=== PATIENT | female | born 1995 | race African-American/Black ===

== ENCOUNTER 2020-02-17 11:04 | Emergency (ER) | payer OTHER, SELFPAY ==
--- NOTE | 2020-02-17 11:12 | ED.SKABFB ---
HPI - Skin/Abscess/Foreign Bdy General Chief complaint: Skin/Abscess/Foreign Body Stated complaint: rash Time Seen by Provider: 02/17/20 11:11 History of Present Illness HPI narrative: This is a 24-year-old that comes in for rash on her skin according to patient she says she has had a rash since Tuesday denies taking anything for symptoms states that has been itching and she would like something for it on her hands and on her face. Patient denies any new detergents new soaps or any new perfumes. Patient has not had any fever nausea vomiting and/or diarrhea Related Data Allergies Allergy/AdvReac Type Severity Reaction Status Date / Time No Known Allergies Allergy Unverified 03/20/19 03:02 Review of Systems Review of Systems: Narrative: CONSTITUTIONAL: Denies fever, chills, or sweats. EYES: Denies visual changes, redness, or discharge. ENT: Denies rhinorrhea, congestion, sore throat, or otalgia. CARDIOVASCULAR:Denies chest pain, palpitations, or edema. RESPIRATORY: Denies cough or dyspnea. GASTROINTESTINAL: Denies abdominal pain, nausea, vomiting, or diarrhea. GENITOURINARY: Denies dysuria or hematuria. SKIN: Positive rash or itching. MUSCULOSKELETAL:Denies back pain, joint pain, or myalgia. NEUROLOGIC: Denies headache, numbness, or weakness. PSYCHIATRIC:Denies anxiety or depression PMFSH Comments At time as signature, I have reviewed and agree with nursing past medical, social, surgical and family history. Please see nursing chart for further information. There is no relevant family history pertinent to the presenting complaint. Exam Narrative: Exam Narrative: GENERAL:Well-appearing, well-nourished, and in no acute distress. HEAD:Normocephalic, atraumatic. EYES: PERRLA and EOMI. ENT: Nares clear, no rhinorrhea or epistaxis. Mucous membranes moist. NECK: Supple. CHEST: Clear to auscultation. No respiratory distress. HEART: Regular rate and rhythm. No murmur heard. Normal peripheral pulses. ABDOMEN: Soft, nontender, nondistended, normal active bowel sounds. EXTREMITIES: Normal range of motion. No edema. SKIN: Warm, dry, topical rash fine erythema with rough spots. NEURO: No focal deficits. Alert and oriented x3. MDM - Skin/Abscess/Foreign Bdy Differential Diagnosis Differential diagnosis: Likely urticaria, allergic reaction to drug, cellulitis, eczema and contact dermatitis Discharge Plan Discharge Clinical Impression: Contact dermatitis Qualifiers: Contact dermatitis type: unspecified Contact dermatitis trigger: unspecified trigger Qualified Code(s): L25.9 - Unspecified contact dermatitis, unspecified cause Eczema Qualifiers: Eczema type: unspecified Qualified Code(s): L30.9 - Dermatitis, unspecified Patient Disposition: Home, Self-Care Condition: Stable Instructions: Antibiotic Form, Contact Dermatitis (ED), Eczema (ED) Additional Instructions: Use skin creams/lotion, such as those containing calamine or pramoxine to reduce itchiness Avoid scratching when possible to prevent worsening of the condition and disruption of the skin that could lead to bacterial infection To relieve itching, place a cool washcloth or some ice over the area that itches, rather than scratching Return to the office or seek ER visit if condition is not improving or worsens with fever, swelling, difficulty breathing or swallowing. Do not scratch. Pat or press on your skin for relief from itching. Your symptoms will get worse if you scratch. Keep your fingernails short so you do not tear your skin if you do scratch. Keep your skin moist. Rub lotion, cream or ointment into your skin right after a bath or shower when your skin is still damp. Ask your healthcare provider what to use and how often to use it. Take baths or showers with warm water for 10 minutes or less. Use mild bar soap. Ask your healthcare provider for the best soap for you to use. Wear cotton clothes. Wear loose-fitting clothes made from cotton or cotton blends. Avoid w
== END 2020-02-17 11:37 | disposition home or self-care (01) ==
PROVIDERS: Emergency Provider Nurse Practitioner Family
DX: L25.9 Unspecified contact dermatitis, unspecified cause (principal)
CPT/HCPCS: 99213; G0463

== ENCOUNTER 2021-04-15 13:34 | Observation (INO) | payer OTHER, SELFPAY ==
--- NOTE | 2021-04-15 13:34 | OBADM ---
This patient, Loida Carpenter, admitted to the OB room OB Post 113 for observation. Patient/family oriented to hospital policies and general routines including ID bracelet, bed and alarms, visiting hours, pain management, procedures, bathroom and other care routines, personal items, smoking policy, room service/diet, and visiting hours. Patient/Family are encouraged to report perceived risks to care and to ask questions if they do not understand what they are told or what they should do.
[2021-04-15 14:15] VITALS: BMI 39.4
[2021-04-15 14:22] LABS: Basophils Percent Auto 0.3 % (0.2-1.2); Eosinophils Absolute Auto 0.1 K/mm3 (0-0.3); Eosinophils Percent Auto 0.7 % (0-4.4); Hematocrit 38.1 % (37.0-47.0); Hemoglobin 12.2 g/dL (12.0-15.0); Immature Granulocyte Absolute 0.02 K/mm3 (0.00-0.031); Immature Granulocyte Percent A 0.3 % (0-0.5); Lymphocytes Absolute Auto 1.86 K/mm3 (0.9-3.2); Lymphocytes Percent Auto 27.3 % (18.3-44.2); Mean Corpuscular Hemoglobin 24.4 pg (26-34); Mean Corpuscular Volume 76.4 fl (80-100); Mean Platelet Volume 9.5 fl (7.4-10.4); Monocytes Absolute Auto 0.5 K/mm3 (0.1-0.6); Neutrophils Absolute Auto 4.4 K/mm3 (1.3-6.7); Neutrophils Percent Auto 64.4 % (45.5-73.1); Platelet Count Result 277 k/mm3 (150-375); Red Blood Count 4.99 M/mm3 (4.2-5.4); Red Cell Distribution Width 15.7 % (11.5-14.5); White Blood Count 6.8 K/mm3 (4.5-10.0)
[2021-04-15] MEDS: ONDANSETRON INJ 4 MG/2 ML VIAL IV PUSH (14:23)
[2021-04-15] MEDS: FAMOTIDINE 20 MG/2 ML VIAL IV PUSH (14:23)
[2021-04-15] MEDS: DEXTROSE 5%/LACTATED RINGERS 1,000 ML 999 ML IV CONT (14:24)
[2021-04-15 14:31] VITALS: BP 112/63; PULSE 70; TEMP 36.2
[2021-04-15 14:32] LABS: Albumin Level 3.9 g/dL (3.5-5.1); Alkaline Phosphatase 54 U/L (38-126); Anion Gap 8 mmol/L (8-16); Aspartate Amino Transferase 21 U/L (14-36); Bilirubin,Total 0.5 mg/dL (0.2-1.3); Blood Urea Nitrogen 3 mg/dL (7-17); Calcium 9.3 mg/dL (8.4-10.2); Carbon Dioxide 25 mmol/L (22-30); Chloride 103 mmol/L (98-107); Estimated Glomerular Filt Rate > 60; Glucose 86 mg/dL (65-105); Sodium 136 mmol/L (137-145)
[2021-04-15 15:29] LABS: Alanine Aminotransferase < 6 U/L (4-35)
[2021-04-15] MEDS: METOCLOPRAMIDE HCL INJ 10 MG/2 ML VIAL IV PUSH (15:48)
[2021-04-15] MEDS: LACTATED RINGERS 1,000 ML 200 ML IV CONT (15:48)
--- NOTE | 2021-04-18 03:24 | P.PNOB_ITS ---
OB - Triage/Final Diagnosis Visit Information Date of evaluation: 04/15/21 Reason for evaluation: other (dehydration) Comments/Additional reasons for admission: I have assessed the risk for this patient, Loida Onofre, and determined that she would benefit from observation care. Evaluation Laboratory results: Laboratory Tests 04/15/21 04/15/21 14:15 14:15 WBC 6.8 RBC 4.99 Hgb 12.2 Hct 38.1 MCV 76.4 L MCH 24.4 L MCHC 32.0 RDW 15.7 H Plt Count 277 MPV 9.5 Immature Gran % (Auto) 0.3 Neut % (Auto) 64.4 Lymph % (Auto) 27.3 [place] % (Auto) 7.0 Eos % (Auto) 0.7 Baso % (Auto) 0.3 Lymph # (Auto) 1.86 [place] # (Auto) 0.5 Eos # (Auto) 0.1 Baso # (Auto) 0.0 Abs Immat Gran (auto) 0.02 Absolute Neuts (auto) 4.4 Absolute Nucleated RBC 0.0 Nucleated RBC % 0.0 Sodium 136 L Potassium 4.0 Chloride 103 Carbon Dioxide 25 Anion Gap 8 BUN 3 L Creatinine 0.60 L Estim Creat Clear Calc Not Reportable Estimated GFR > 60 Glucose 86 Calcium 9.3 Total Bilirubin 0.5 AST 21 ALT < 6 Alkaline Phosphatase 54 Total Protein 8.0 Albumin 3.9
== END 2021-04-15 19:09 | disposition home or self-care (01) ==
PROVIDERS: Advanced Practice Midwife; Admitting Provider Obstetrics & Gynecology; Visit Provider Obstetrics & Gynecology
DX: O99.281 Endocrine, nutritional and metabolic diseases complicating pregnancy, first trimester (principal); E86.0 Dehydration; Z3A.13 13 weeks gestation of pregnancy
CPT/HCPCS: 36415; 80053; 85025; 96361; 96374; 96375; G0378; G0379; J2405; J2765; J7120; J7121

== ENCOUNTER 2021-04-20 23:59 | Emergency (ER) | payer OTHER, SELFPAY ==
[2021-04-21 00:03] VITALS: BP 117/69; PULSE 80; RESP 18; TEMP 36.3; O2SAT 100
--- NOTE | 2021-04-21 00:08 | ECG_ITS ---
Measurements Intervals [place] Rate: 74 P: 64 NM: 161 QRS: 20 QRSD: 79 T: 12 QT: 392 QTc: 436 Interpretive Statements SINUS RHYTHM INCOMPLETE RIGHT BUNDLE BRANCH BLOCK BORDERLINE T WAVE ABNORMALITY- INFERIOR LEADS BORDERLINE ECG Electronically Signed On 04-21-2021 7:10:45 CDT by Kang Rousseau D.O.
[2021-04-21 00:38] LABS: Alkaline Phosphatase 64 U/L (38-126); Anion Gap 9 mmol/L (8-16); Aspartate Amino Transferase 21 U/L (14-36); Bilirubin,Total 0.4 mg/dL (0.2-1.3); Blood Urea Nitrogen 7 mg/dL (7-17); Calcium 9.6 mg/dL (8.4-10.2); Carbon Dioxide 25 mmol/L (22-30); Chloride 104 mmol/L (98-107); Estimated CRCL calculation 112 ml/min; Estimated Glomerular Filt Rate > 60; Glucose 92 mg/dL (65-105); Potassium 3.5 mmol/L (3.4-5.0); Sodium 138 mmol/L (137-145)
[2021-04-21 00:40] LABS: Basophils Percent Auto 0.2 % (0.2-1.2); Eosinophils Absolute Auto 0.1 K/mm3 (0-0.3); Eosinophils Percent Auto 0.7 % (0-4.4); Hematocrit 38.6 % (37.0-47.0); Hemoglobin 12.2 g/dL (12.0-15.0); Immature Granulocyte Absolute 0.05 K/mm3 (0.00-0.031); Immature Granulocyte Percent A 0.6 % (0-0.5); Lymphocytes Absolute Auto 1.96 K/mm3 (0.9-3.2); Lymphocytes Percent Auto 23.5 % (18.3-44.2); Mean Corpuscular HGB Conc 31.6 g/dl (32-36); Mean Corpuscular Hemoglobin 24.1 pg (26-34); Mean Corpuscular Volume 76.1 fl (80-100); Mean Platelet Volume 9.6 fl (7.4-10.4); Monocytes Absolute Auto 0.7 K/mm3 (0.1-0.6); Neutrophils Absolute Auto 5.6 K/mm3 (1.3-6.7); Platelet Count Result 316 k/mm3 (150-375); Red Blood Count 5.07 M/mm3 (4.2-5.4); White Blood Count 8.3 K/mm3 (4.5-10.0)
[2021-04-21 01:09] LABS: Alanine Aminotransferase < 6 U/L (4-35)
--- NOTE | 2021-04-21 01:22 | ED.DIZZY ---
HPI - Dizziness General Chief Complaint: Dizziness Stated Complaint: 14 weeks , dizzy Time Seen by Provider: 04/21/21 00:47 Source: patient Mode of arrival: ambulatory Limitations: no limitations History of Present Illness HPI Narrative: 26-year-old 1 about 14 weeks of gestation here with complaints of dizziness while she was at work this afternoon. She states that she went to another ER was waiting in the ER for 6 hours decided to come here. She presently denies any chest pain or shortness of breath. No history of any vaginal bleeding or discharge or abdominal cramping. MD elicited complaint: dizziness Timing: gradual onset Severity: moderate Description: lightheadedness Exacerbating factors: nothing Relieving factors: nothing Associated symptoms: denies other symptoms Related Data Allergies Allergy/AdvReac Type Severity Reaction Status Date / Time No Known Allergies Allergy Unverified 03/20/19 03:02 Review of Systems Review of Systems: All systems reviewed & are unremarkable except as noted in HPI and below Constitutional: Constitutional: Reports no additional constitutional complaints Eyes: Eyes: Reports no additional eye complaints ENT: Reports system reviewed and no additional complaints, except as documented Cardiovascular: Cardiovascular: Reports no additional cardiovascular complaints Respiratory: Respiratory: Reports no additional respiratory complaints Gastrointestinal: Gastrointestinal: Reports no additional gastrointestinal complaints Musculoskeletal: Musculoskeletal: Reports no additional musculoskeletal complaints Neurologic: Reports system reviewed and no additional complaints, except as documented PMFSH Social History Social History Gender identity (if verbalized by the patient): Female Exam Narrative: Exam Narrative: GENERAL: Well-appearing, well-nourished, and in no acute distress. HEAD: Normocephalic, atraumatic. EYES: PERRLA and EOMI. NECK: Supple. CHEST: Clear to auscultation. No respiratory distress. HEART: Regular rate and rhythm. No murmur heard. Normal peripheral pulses. ABDOMEN: Soft, nontender, nondistended, normal active bowel sounds. EXTREMITIES: Normal range of motion. No edema. SKIN: Warm, dry, no rash. NEURO: No focal deficits. Alert and oriented x3. PSYCH: Normal mood and affect. Course Course Emergency Course: Patient comfortably lying on bed in no discomfort. I discussed lab work EKG findings. Advised her to drink plenty of fluids, follow-up with her OB doctor. Vital Signs Vital signs: Vital Signs Temperature 36.3 C L 04/21/21 00:03 Pulse Rate 80 04/21/21 00:03 Respiratory Rate 18 04/21/21 00:03 Blood Pressure 117/69 04/21/21 00:03 Pulse Oximetry 100 04/21/21 00:03 Temperature 36.3 C L 04/21/21 00:03 Pulse Rate 80 04/21/21 00:03 Respiratory Rate 18 04/21/21 00:03 Blood Pressure 117/69 04/21/21 00:03 Pulse Oximetry 100 04/21/21 00:03 MDM - Dizziness Lab Data Result diagrams: 04/21/21 00:20 04/21/21 00:20 Labs: Lab Results 04/21/21 04/21/21 Range/Units 00:20 00:20 WBC 8.3 (4.5-10.0) K/mm3 RBC 5.07 (4.2-5.4) M/mm3 Hgb 12.2 (12.0-15.0) g/dL Hct 38.6 (37.0-47.0) % MCV 76.1 L (80-100) fl MCH 24.1 L (26-34) pg MCHC 31.6 L (32-36) g/dl RDW 16.0 H (11.5-14.5) % Plt Count 316 (150-375) k/mm3 MPV 9.6 (7.4-10.4) fl Immature Gran % (Auto) 0.6 H (0-0.5) % Neut % (Auto) 67.0 (45.5-73.1) % Lymph % (Auto) 23.5 (18.3-44.2) % [place] % (Auto) 8.0 (2.6-8.5) % Eos % (Auto) 0.7 (0-4.4) % Baso % (Auto) 0.2 (0.2-1.2) % Lymph # (Auto) 1.96 (0.9-3.2) K/mm3 [place] # (Auto) 0.7 H (0.1-0.6) K/mm3 Eos # (Auto) 0.1 (0-0.3) K/mm3 Baso # (Auto) 0.0 (0.0-0.1) K/mm3 Abs Immat Gran (auto) 0.05 H (0.00-0.031) K/mm3 Absolute Neuts (auto) 5.6 (1.3-6.7) K/mm3 Absol
== END 2021-04-21 01:41 | disposition home or self-care (01) ==
LOC: ANHED 04-21 01:29
PROVIDERS: Emergency Provider Family Medicine
DX: O26.891 Other specified pregnancy related conditions, first trimester (principal); R42 Dizziness and giddiness; I45.10 Unspecified right bundle-branch block; R94.31 Abnormal electrocardiogram [ECG] [EKG]; Z3A.00 Weeks of gestation of pregnancy not specified
CPT/HCPCS: 36415; 80053; 85025; 93005; 99283

== ENCOUNTER 2021-08-06 19:05 | Outpatient (CLI) | payer OTHER, SELFPAY ==
[2021-08-06] VITALS (9 sets, daily range): BP systolic 104–125; BP diastolic 66–93; PULSE 75–85; TEMP 36.8
[2021-08-06] MEDS: ACETAMINOPHEN 500 MG TABLET 1000 MG PO (19:52)
[2021-08-06 20:07] LABS: Basophils Percent Auto 0.3 % (0.2-1.2); Eosinophils Absolute Auto 0.1 K/mm3 (0-0.3); Eosinophils Percent Auto 0.7 % (0-4.4); Hematocrit 35.5 % (37.0-47.0); Immature Granulocyte Absolute 0.08 K/mm3 (0.00-0.031); Immature Granulocyte Percent A 0.8 % (0-0.5); Lymphocytes Absolute Auto 2.04 K/mm3 (0.9-3.2); Lymphocytes Percent Auto 20.9 % (18.3-44.2); Mean Corpuscular Hemoglobin 24.9 pg (26-34); Mean Corpuscular Volume 80.3 fl (80-100); Mean Platelet Volume 9.7 fl (7.4-10.4); Monocytes Absolute Auto 0.8 K/mm3 (0.1-0.6); Monocytes Percent Auto 7.9 % (2.6-8.5); Neutrophils Absolute Auto 6.8 K/mm3 (1.3-6.7); Neutrophils Percent Auto 69.4 % (45.5-73.1); Platelet Count Result 330 k/mm3 (150-375); Red Blood Count 4.42 M/mm3 (4.2-5.4); Red Cell Distribution Width 13.5 % (11.5-14.5); White Blood Count 9.7 K/mm3 (4.5-10.0)
[2021-08-06 20:13] LABS: Add Urine Microscopic? YES; Appearance Urine Clear (Clear); Bacteria Urine Trace /hpf; Bilirubin Urine Negative (Negative); Blood Urine Negative (Negative); Color Urine Yellow (Yellow); Glucose Urine UA Negative (Negative); Ketones Urine Trace mg/dL (Negative); Leukocyte Esterase Ur Trace LEU/UL (NEGATIVE); Mucus Urine Rare /lpf; Nitrate Urine Negative (Negative); Protein Urine 1+ mg/dL (Negative); Specific Grav Ur 1.023 (1.001-1.035); Squamous Epithelial Cell Urine Rare /hpf (Few)
[2021-08-06 20:17] LABS: Alanine Aminotransferase 7 U/L (4-35); Albumin Level 4.1 g/dL (3.5-5.1); Alkaline Phosphatase 104 U/L (38-126); Anion Gap 7 mmol/L (8-16); Aspartate Amino Transferase 25 U/L (14-36); Bilirubin,Total 0.8 mg/dL (0.2-1.3); Blood Urea Nitrogen 7 mg/dL (7-17); Calcium 9.2 mg/dL (8.4-10.2); Carbon Dioxide 29 mmol/L (22-30); Chloride 102 mmol/L (98-107); Estimated Glomerular Filt Rate > 60; Glucose 72 mg/dL (65-110); Sodium 138 mmol/L (137-145); Uric Acid 3.1 mg/dL (2.5-7.5)
[2021-08-06 21:09] LABS: Creatinine Urine 158.8 mg/dL; Total Protein Urine Random 6 mg/dL; Ur Ttl Prot Creatinine Ratio 0.04 mg/mg (0-0.20)
== END 2021-08-06 23:10 | disposition home or self-care (01) ==
LOC: ANHOBOP 19:11 → ANHOBPP 19:12
PROVIDERS: Advanced Practice Midwife; Visit Provider Obstetrics & Gynecology
DX: H53.8 Other visual disturbances (principal); R11.0 Nausea
CPT/HCPCS: 36415; 59025; 80053; 81001; 82570; 84156; 84550; 85025; 87086; 99199; A9270

== ENCOUNTER 2021-08-10 13:16 | Observation (INO) | payer OTHER, SELFPAY ==
[2021-08-10 13:46] VITALS: BP 116/71; PULSE 79
--- NOTE | 2021-08-10 13:50 | OBADM ---
This patient, Loida Onofre, admitted to the OB room OB Post 112 for observation. Patient/family oriented to hospital policies and general routines including ID bracelet, bed and alarms, visiting hours, pain management, procedures, bathroom and other care routines, personal items, smoking policy, room service/diet, and visiting hours. Patient/Family are encouraged to report perceived risks to care and to ask questions if they do not understand what they are told or what they should do.
[2021-08-10 14:01] VITALS: BP 119/71; PULSE 84
[2021-08-10 14:16] VITALS: BP 111/72; PULSE 76
[2021-08-10 14:18] LABS: Add Urine Microscopic? YES; Amorphous Sediment Urine Few; Appearance Urine Cloudy (Clear); Bacteria Urine Trace /hpf; Bilirubin Urine Negative (Negative); Blood Urine Negative (Negative); Color Urine Amber (Yellow); Glucose Urine UA Negative (Negative); Ketones Urine Trace mg/dL (Negative); Leukocyte Esterase Ur 3+ LEU/UL (NEGATIVE); Mucus Urine Heavy /lpf; Nitrate Urine Negative (Negative); Protein Urine 2+ mg/dL (Negative); Specific Grav Ur 1.024 (1.001-1.035); Squamous Epithelial Cell Urine Moderate /hpf (Few)
[2021-08-10 14:31] VITALS: BP 117/66; PULSE 83
--- NOTE | 2021-08-10 14:45 | PC.NURSE ---
Óscar Napoles notified of adm c/o nausea and vomiting and not being able to keep anything down sense . Orders received.
[2021-08-10] MEDS: DEXTROSE 5%/LACTATED RINGERS 1,000 ML 150 ML IV CONT ×3 (14:58→22:51)
[2021-08-10] MEDS: ONDANSETRON INJ 4 MG/2 ML VIAL IV PUSH (14:59)
--- NOTE | 2021-08-10 16:00 | PC.NURSE ---
Patient states that she had some vomiting a bit ago after eating crackers. Better now.
--- NOTE | 2021-08-10 18:04 | PC.NURSE ---
Addendum entered by Carolina Lorenzana RN 08/10/21 18:05: 1730 Original Note: Patient states that she is feeling a little better but not wanting to eat anything right now.
[2021-08-10 20:04] VITALS: BP 127/71; PULSE 73
[2021-08-10] MEDS: PROMETHAZINE HCL 25 MG/ML AMPUL 12.5 MG IV PUSH (22:50)
[2021-08-10] MEDS: diphenhydrAMINE HCl INJ 50 MG/ML VIAL 25 MG IV PUSH (23:08)
[2021-08-10 23:32] VITALS: BP 127/71; PULSE 78
--- NOTE | 2021-08-10 23:37 | PCDIET ---
2244 called Óscar altman CNM notified pt still vomiting. order received for phenegran 12.5 ivp. 0 Phenegran IVP given. 2299 pt started to agitated and moving around a lot. appears uncomfortable. called Candi got benadryl order.
[2021-08-11 07:17] VITALS: BP 120/74; PULSE 76; TEMP 36.4
[2021-08-11] MEDS: DEXTROSE 5%/LACTATED RINGERS 1,000 ML 150 ML IV CONT (07:21)
--- NOTE | 2021-08-11 08:05 | WPDOBADMIT ---
Obstetrics - Admit Note Admission Note: 26 y/o here for nausea and vomiting with headache. Today improved. No headache and very minimal nausea. Plan: [facility] panel record reviewed. No pertinent additions to the history and/or any subsequent changes in the physical findings that are not consistent with the expected course of the were found. Additions to the history and/or subsequent changes in the physical findings follow. None.
--- NOTE | 2021-08-11 08:19 | PC.NURSE ---
0800- Lisette REYNAGAM on unit to round on patient, orders for [facility] labs, order for PO phenergan 12.5 mg if pt is nauseous again
[2021-08-11 08:20] LABS: Basophils Percent Auto 0.1 % (0.2-1.2); Eosinophils Absolute Auto 0.1 K/mm3 (0-0.3); Eosinophils Percent Auto 0.8 % (0-4.4); Hematocrit 30.7 % (37.0-47.0); Hemoglobin 9.6 g/dL (12.0-15.0); Immature Granulocyte Absolute 0.06 K/mm3 (0.00-0.031); Immature Granulocyte Percent A 0.8 % (0-0.5); Lymphocytes Absolute Auto 2.02 K/mm3 (0.9-3.2); Lymphocytes Percent Auto 26.5 % (18.3-44.2); Mean Corpuscular HGB Conc 31.3 g/dl (32-36); Mean Corpuscular Hemoglobin 24.9 pg (26-34); Mean Corpuscular Volume 79.7 fl (80-100); Mean Platelet Volume 9.3 fl (7.4-10.4); Monocytes Absolute Auto 0.7 K/mm3 (0.1-0.6); Monocytes Percent Auto 9.2 % (2.6-8.5); Neutrophils Absolute Auto 4.8 K/mm3 (1.3-6.7); Neutrophils Percent Auto 62.6 % (45.5-73.1); Platelet Count Result 264 k/mm3 (150-375); Red Blood Count 3.85 M/mm3 (4.2-5.4); Red Cell Distribution Width 13.6 % (11.5-14.5); White Blood Count 7.6 K/mm3 (4.5-10.0)
[2021-08-11 08:36] LABS: Alanine Aminotransferase 9 U/L (4-35); Albumin Level 3.1 g/dL (3.5-5.1); Alkaline Phosphatase 74 U/L (38-126); Anion Gap 7 mmol/L (8-16); Aspartate Amino Transferase 19 U/L (14-36); Bilirubin,Total 0.4 mg/dL (0.2-1.3); Blood Urea Nitrogen 5 mg/dL (7-17); Calcium 8.2 mg/dL (8.4-10.2); Carbon Dioxide 24 mmol/L (22-30); Chloride 106 mmol/L (98-107); Estimated Glomerular Filt Rate > 60; Glucose 80 mg/dL (65-110); Potassium 3.6 mmol/L (3.4-5.0); Sodium 137 mmol/L (137-145); Uric Acid 2.6 mg/dL (2.5-7.5)
[2021-08-11] MEDS: PROCHLORPERAZINE 25 MG SUPP.RECT RECTAL (08:55)
[2021-08-11 10:01] LABS: Creatinine Urine 65.7 mg/dL; Total Protein Urine Random 16 mg/dL; Ur Ttl Prot Creatinine Ratio 0.24 mg/mg (0-0.20)
--- NOTE | 2021-08-11 11:27 | PC.NURSE ---
1051- spoke with Tennille Napoles CNM, orders to discharge to home, prescription sent for compazine suppositories
--- NOTE | 2021-08-23 10:01 | PM.OBTRLD ---
OB - Triage/Final Diagnosis Visit Information Comments/Additional reasons for admission: I have assessed the risk for this patient, Loida Villegas Shanell Onofre, and determined that she would benefit from observation care. Evaluation Laboratory results: Laboratory Tests 08/10/21 08/11/21 08/11/21 13:46 08:07 08:07 WBC 7.6 RBC 3.85 L Hgb 9.6 L Hct 30.7 L MCV 79.7 L MCH 24.9 L MCHC 31.3 L RDW 13.6 Plt Count 264 MPV 9.3 Immature Gran % (Auto) 0.8 H Neut % (Auto) 62.6 Lymph % (Auto) 26.5 [place] % (Auto) 9.2 H Eos % (Auto) 0.8 Baso % (Auto) 0.1 L Lymph # (Auto) 2.02 [place] # (Auto) 0.7 H Eos # (Auto) 0.1 Baso # (Auto) 0.0 Abs Immat Gran (auto) 0.06 H Absolute Neuts (auto) 4.8 Absolute Nucleated RBC 0.0 Nucleated RBC % 0.0 Sodium Potassium Chloride Carbon Dioxide Anion Gap BUN Creatinine Estim Creat Clear Calc Estimated GFR Glucose Uric Acid Calcium Total Bilirubin AST ALT Alkaline Phosphatase Total Protein Albumin Urine Color [place] Urine Appearance Cloudy H Urine pH 5.0 Ur Specific [place] 1.024 Urine Protein 2+ H Urine Glucose (UA) Negative Urine Ketones Trace Ur Blood (Man) Negative Urine Nitrate Negative Urine Bilirubin Negative Urine Urobilinogen 4.0 H Ur Leukocyte Esterase 3+ H Urine RBC 6-10 H Urine WBC 10-15 H Ur Squamous Epith Cells Moderate H Amorphous Sediment Few H Urine Bacteria Trace Hyaline Casts 1-2 Urine Mucus Heavy H U Random Total Protein 16 Urine Creatinine 65.7 Protein/Creat Ratio 2 0.24 H 08/11/21 08:07 WBC RBC Hgb Hct MCV MCH MCHC RDW Plt Count MPV Immature Gran % (Auto) Neut % (Auto) Lymph % (Auto) [place] % (Auto) Eos % (Auto) Baso % (Auto) Lymph # (Auto) [place] # (Auto) Eos # (Auto) Baso # (Auto) Abs Immat Gran (auto) Absolute Neuts (auto) Absolute Nucleated RBC Nucleated RBC % Sodium 137 Potassium 3.6 Chloride 106 Carbon Dioxide 24 Anion Gap 7 L BUN 5 L Creatinine 0.50 L Estim Creat Clear Calc Not Reportable Estimated GFR > 60 Glucose 80 Uric Acid 2.6 Calcium 8.2 L Total Bilirubin 0.4 AST 19 ALT 9 Alkaline Phosphatase 74 Total Protein 6.0 L Albumin 3.1 L Urine Color Urine Appearance Urine pH Ur Specific [place] Urine Protein Urine Glucose (UA) Urine Ketones Ur Blood (Man) Urine Nitrate Urine Bilirubin Urine Urobilinogen Ur Leukocyte Esterase Urine RBC Urine WBC Ur Squamous Epith Cells Amorphous Sediment Urine Bacteria Hyaline Casts Urine Mucus U Random Total Protein Urine Creatinine Protein/Creat Ratio 2 Final Diagnosis (1) Nausea and vomiting during : Code(s): O21.9 - Vomiting of , unspecified Status: Acute
== END 2021-08-11 11:20 | disposition home or self-care (01) ==
PROVIDERS: Advanced Practice Midwife; Admitting Provider Obstetrics & Gynecology; Visit Provider Obstetrics & Gynecology
DX: O21.2 Late vomiting of pregnancy (principal); Z3A.39 39 weeks gestation of pregnancy
CPT/HCPCS: 36415; 59025; 80053; 81001; 82570; 84156; 84550; 85025; 96360; 96361; 96374; 96375; A9270; G0378; G0379; J1200; J2405; J2550; J7121

== ENCOUNTER 2021-09-07 13:46 | Emergency (ER) | payer OTHER, SELFPAY ==
[2021-09-07 13:57] VITALS: BP 117/68; PULSE 91; RESP 16; TEMP 36.8; O2SAT 99
--- NOTE | 2021-09-07 14:17 | ED.EYEPROB ---
HPI - Eye Problem General Chief complaint: Eye Problems Stated complaint: Eye Pain Time Seen by Provider: 09/07/21 14:18 Source: patient, RN notes reviewed and old records reviewed Mode of arrival: ambulatory Limitations: no limitations History of Present Illness HPI Narrative: 26-year-old female presents to [facility] care with 3 day duration of bilateral eye itching, redness and drainage with crusting. 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 Patient denies any fevers, chills or sweats or any other symptoms of illness. MD chief complaint: eye redness and other (drainage) Onset (ago): day(s) (3) Related Data Home Medications Medication Instructions Recorded Confirmed sertraline 100 mg PO DAILY 09/07/21 09/07/21 Allergies Allergy/AdvReac Type Severity Reaction Status Date / Time No Known Allergies Allergy Verified 09/07/21 14:18 Review of Systems Review of Systems: CONSTITUTIONAL: Denies fever, chills, or sweats. EYES: Denies visual changes,positive for bilateral eye redness and discharge. ENT:Positive for some clear rhinorrhea,no congestion, sore throat, or otalgia. CARDIOVASCULAR: Denies chest pain, palpitations, or edema. RESPIRATORY: Denies cough or dyspnea. GASTROINTESTINAL: Denies abdominal pain, nausea, vomiting, or diarrhea. GENITOURINARY: Denies dysuria or hematuria. SKIN: Denies rash or itching. MUSCULOSKELETAL: Denies back pain, joint pain, or myalgia. NEUROLOGIC: Denies headache, numbness, or weakness. PSYCHIATRIC: Positive for history of anxiety or depression. All systems reviewed & are unremarkable except as noted in HPI and below PMFSH Past Medical History Medical History (Updated 09/09/21 @ 17:17 by Dominique Pat NP) Anxiety and depression Surgical History Surgical History (Updated 09/09/21 @ 17:18 by Dominique Pat NP) No history of previous surgery Family History Family History (Updated 09/09/21 @ 17:18 by Dominique Pat NP) Other No significant family history Social History Social History (Updated 09/09/21 @ 17:19 by Dominique Pat NP) Smoking status: Never smoker Alcohol intake: former Alcohol use details: social only presently is 34 weeks Substance use: never Living arrangements: with family Gender identity (if verbalized by the patient): Female Comments At time of signature, agree with nursing past medical, surgical, social and family history. There is no relevant family history pertinent to the presenting complaint Exam Narrative: GENERAL: Well-appearing, well-nourished, and in no acute distress. HEAD: Normocephalic, atraumatic. EYES: PERRLA and EOMI. Patient has bilateral sclera redness with conjunctiva red and inflamed, itchy eyes with some yellowish drainage noted from eyes ENT: Nares clear, scant clear rhinorrhea no epistaxis. Mucous membranes moist.TM's normal with good light reflex,throat pink with no lesions or exudates, no tonsil enlargement. NECK: Supple.no lymphadenopathy CHEST: Clear to auscultation. No respiratory distress. SAO2 99% HEART: Regular rate and rhythm. No murmur heard. Normal peripheral pulses. ABDOMEN: Soft, nontender, nondistended, normal active bowel sounds. EXTREMITIES: Normal range of motion. No edema. SKIN: Warm, dry, no rash. NEURO: No focal deficits. Alert and oriented x3. Course Vital Signs Vital signs: Vital Signs Temperature 36.8 C 09/07/21 13:57 Pulse Rate 91 09/07/21 13:57 Respiratory Rate 16 09/07/21 13:57 Blood Pressure 117/68 09/07/21 13:57 Pulse Oximetry 99 09/07/21 13:57 Temperature 36.8 C 09/07/21 13:57 Pulse Rate 91 09/07/21 13:57 Respiratory Rate 16 09/07/21 13:57 Blood Pressure 117/68 09/07/21 13:57 Pulse Oximetry 99 09/07/21 13:57 MDM - Eye Problem Diff
== END 2021-09-07 14:40 | disposition home or self-care (01) ==
PROVIDERS: Emergency Provider Registered Nurse
DX: O99.891 Other specified diseases and conditions complicating pregnancy (principal); Z3A.34 34 weeks gestation of pregnancy; H10.33 Unspecified acute conjunctivitis, bilateral
CPT/HCPCS: 99213; G0463

== ENCOUNTER 2021-10-18 04:50 | Inpatient (IN) | payer OTHER, SELFPAY ==
[2021-10-18] VITALS (45 sets, daily range): BP systolic 99–147; BP diastolic 63–105; PULSE 75–105; RESP 16; TEMP 36.2–36.9; O2SAT 100; BMI 39.9
--- OUTSIDE RECORDS SUMMARY | 2021-10-18 05:15 | XMS_ITS | Encounter Summary ---
:1995 Author Reason for Visit None recorded. Assessment and Plan 1. Maternal obesity complicating , childbirth and the puerperium, antepartum ? non-stress test Discussion Note: None recorded.Patient educational handouts: No information available. Plan of Care Reminders Provider Appointments Ob Routine 10/20/2021 Ariadne Mary Alice 9:45AM MD Diana ? U/S OB BPP 10/20/2021 Ultras ound, TECH 9:00AM ? Nst 10/20/2021 Nst, , EQUI P 8:30AM ? Well on or around Quin morrison, Woman-est 11/27/2021 CNM Lab None ? ? recorded. Referral None ? ? recorded. Procedures None ? ? recorded. Surgeries None ? ? recorded. Imaging Non-stress 09/22/2021 Liliana jamison Test Medications Name Start Date ? ? fluconazole 150 mg tablet ? TAKE 1 TABLET BY MOUTH EVERY 72 HOURS FOR 7 DAYS ondansetron HCl 4 mg tablet ? Take 1 tablet every 6-8 hours by oral route as needed . ? prochlorperazine 25 mg rectal suppository ? UNWRAP AND INSERT 1 SUPPOSITORY RECTALLY DAILY sertraline 100 mg tablet ? TAKE 1 TABLET BY MOUTH EVERY DAY Notes: Samples given to pt Mei rizo
--- OUTSIDE RECORDS SUMMARY | 2021-10-18 05:15 | XMS_ITS | Encounter Summary ---
[...] Surgeries None ? ? recorded. Imaging Non-stress 10/06/2021 Liliana jamison Test Medications Name Start Date [...]
--- OUTSIDE RECORDS SUMMARY | 2021-10-18 05:15 | XMS_ITS | Encounter Summary ---
:1995 Author Reason for Visit OB visit Assessment and Plan 1. Group B Streptococcus carrier 2. Routine care Discussion Note: None recorded.Patient educational handouts: No information available. Plan of Care Reminders Provider Appointments Ob Routine 10/20/2021 Ariadne Mary Alice 9:45AM MD Diana ? U/S OB BPP 10/20/2021 Ultras ound, TECH 9:00AM ? Nst 10/20/2021 Nst, BEREKET P 8:30AM ? Well on or around Quin morrison, Woman-est 11/27/2021 CNM Lab None ? ? recorded. Referral None ? ? recorded. Procedures None ? ? recorded. Surgeries None ? ? recorded. Imaging None ? ? recorded. Medications Name Start Date ? ? fluconazole [...] Notes: Samples given to pt Mei rizo Medications Administered None recorded. Vitals Height Weight BM
--- OUTSIDE RECORDS SUMMARY | 2021-10-18 05:15 | XMS_ITS | Encounter Summary ---
:1995 Author Reason for Visit None recorded. Assessment and Plan 1. Maternal obesity complicating , childbirth and the puerperium, antepartum ? US, obstetric, biophysical profile + non-stress test Discussion Note: None recorded.Patient educational handouts: No information available. Plan of Care Reminders Provider Appointments Ob Routine 10/20/2021 Ariadne Mary Alice 9:45AM MD Diana ? U/S OB BPP 10/20/2021 Ultras ound, 9:00AM TECH ? Nst 10/20/2021 Nst, , EQUI P 8:30AM ? Well on or around Quin E Woman-est 11/27/2021 [place] Mon Lab None ? ? recorded. Referral None ? ? recorded. Procedures None ? ? recorded. Surgeries None ? ? recorded. Imaging US, 10/06/2021 [facility], Biophysical Profile + Non-stress Test Medications Name Start Date ? ? fluconazole 150 mg tablet ? TAKE 1 TABLET BY MOUTH EVERY 72 HOURS FOR 7 DAYS ondansetron HCl 4 mg tablet ? Take 1 tablet every 6-8 hours by oral route as needed . ? prochlorperazine 25 mg rectal suppository ? UNWRAP AND INSERT 1 SUPPOSITORY RECTALLY D
--- OUTSIDE RECORDS SUMMARY | 2021-10-18 05:15 | XMS_ITS | Encounter Summary ---
:1995 Author Reason for Visit None recorded. Assessment and Plan 1. Maternal obesity complicating , childbirth and the puerperium, antepartum ? non-stress test Discussion Note: None recorded.Patient educational handouts: No information available. Plan of Care Reminders Provider Appointments Ob Routine 10/20/2021 Ariadne Mary Alice 9:45AM MD Diaan ? U/S OB BPP 10/20/2021 Ultras ound, TECH 9:00AM ? Nst 10/20/2021 Nst, , EQUI P 8:30AM ? Well on or around Quin morrison, Woman-est 11/27/2021 CNM Lab None ? ? recorded. Referral None ? ? recorded. Procedures None ? ? recorded. Surgeries None ? ? recorded. Imaging Non-stress 09/29/2021 Liliana jamison Test Medications Name Start Date [...]
--- OUTSIDE RECORDS SUMMARY | 2021-10-18 05:15 | XMS_ITS | Encounter Summary ---
:1995 Author Reason for Visit OB visit Assessment and Plan 1. Routine care Discussion Note: None recorded.Patient educational handouts: No information available. Plan of Care Reminders Provider Appointments Ob Routine 10/20/2021 Ariadne Mary Alice 9:45AM MD Diana ? U/S OB BPP 10/20/2021 Ultras ound, TECH 9:00AM ? Nst 10/20/2021 Nst, RICHI P 8:30AM ? Well on or around [...] Medications Administered None recorded. Vitals Height Weight BMI Blood Pressure 5 ft 5 in 214 lbs 35.
--- OUTSIDE RECORDS SUMMARY | 2021-10-18 05:15 | XMS_ITS | Encounter Summary ---
[...] Surgeries None ? ? recorded. Imaging US, 10/13/2021 [place] [facility], Biophysical Profile + Non-stress Test Medications [...]
--- OUTSIDE RECORDS SUMMARY | 2021-10-18 05:15 | XMS_ITS | Encounter Summary ---
:1995 Author Reason for Visit None recorded. Assessment and Plan 1. Maternal obesity complicating , childbirth and the puerperium, antepartum ? US, obstetric, follow-up ? US, obstetric, biophysical profile + non-stress [...] Surgeries None ? ? recorded. Imaging US, 09/29/2021 [place] [facility], Follow-up ? US, 09/29/2021 [place] [facility], Biophysical Profile + Non-stress Test Medications Name Start Date ? ? fluconazole 150 mg tablet ? TAKE 1 TABLET BY MOUTH EVERY 72 HOURS FOR 7 DAYS ondansetron HCl 4
--- OUTSIDE RECORDS SUMMARY | 2021-10-18 05:15 | XMS_ITS ---
:1995 Author Care Team Providers Name Role Phone Halie Napoles Primary Care Provider Unavailable Allergies Code Code System Name Reaction Severity Status Onset NKDA ? Medications Name Status Start Date Stop Date ? ? ciprofloxacin 0.3 % eye drops Completed ? fluconazole 150 mg tablet Active ? Not av ailable TAKE 1 TABLET BY MOUTH EVERY 72 HOURS FOR 7 DAYS Lomedia 24 Fe 1 mg-20 mcg (24)/75 mg (4) tablet Completed 04/11/2018 02/15/2020 TAKE 1 TABLET BY ORAL ROUTE EVERY DAY metronidazole 500 mg tablet Completed ? 06/15 TAKE 4 TABLETS BY MOUTH ALL AT ONCE ondansetron HCl 4 mg tablet Active ? Not available Active ? Not available prochlorperazine 25 mg rectal suppository Active ? Not available UNWRAP AND INSERT 1 SUPPOSITORY RECTALLY DAILY metoclopramide 10 mg tablet Active ? Not available TAKE 1 TABLET BY MOUTH FOUR TIMES DAILY sertraline 100 mg tablet Active ? Not isabella ilable sertraline 50 mg tablet Completed ? 09/02/20 21 Zithromax 500 mg tablet Completed 03/13/2018 04/14/20 18 take 2 tablet by oral route once Notes: Samples given to pt Mei rizo Problems Name Status Onset Date Source ? Body Mass Index 30+ - Obesity Unknown 05/28/2016 Hi story Test Negative Unknown 05/28/2016 History Combined Oral Contraceptive - Use Unknown 02/02/2017 History Human Papillomavirus Deoxyribonucleic Unknown 03/16/2017 History Acid Test Positi
--- OUTSIDE RECORDS SUMMARY | 2021-10-18 05:15 | XMS_ITS | Encounter Summary ---
:1995 Author Reason for Visit OB visit Assessment and Plan 1. Routine care 2. Candidal vulvovaginitis ? Diflucan 150 mg tablet 3. Venereal disease screening Discussion Note: None recorded.Patient educational handouts: No information available. Plan of Care Reminders Provider Appointments Ob Routine 10/20/2021 Ariadne Mary Alice 9:45AM MD Diana ? U/S OB BPP 10/20/2021 Ultras regla TECH 9:00AM ? Nst 10/20/2021 Nst, RICHI [...]
--- OUTSIDE RECORDS SUMMARY | 2021-10-18 05:15 | XMS_ITS | Encounter Summary ---
:1995 Author Reason for Visit OB visit 36W4D Assessment and Plan 1. Routine care Discussion Note: None recorded.Patient educational handouts: No information available. Plan of Care Reminders Provider Appointments Ob Routine 10/20/2021 Aridane Mary Alice 9:45AM MD Diana ? U/S OB BPP 10/20/2021 Ultras ound, TECH 9:00AM ? Nst 10/20/2021 NstEQUI P 8:30AM ? Well on or around [...]
--- OUTSIDE RECORDS SUMMARY | 2021-10-18 05:15 | XMS_ITS | Encounter Summary ---
[...] Surgeries None ? ? recorded. Imaging Non-stress 10/13/2021 Liliana jamison Test Medications Name Start Date [...]
--- OUTSIDE RECORDS SUMMARY | 2021-10-18 05:15 | XMS_ITS | Encounter Summary ---
:1995 Author Reason for Visit OB visit 37w4d Assessment and Plan 1. Routine care Discussion [...]
--- OUTSIDE RECORDS SUMMARY | 2021-10-18 05:16 | XMS_ITS | Encounter Summary ---
:1995 Author Reason for Visit OB visit 31w3d Assessment and Plan 1. Routine care Discussion [...]
--- OUTSIDE RECORDS SUMMARY | 2021-10-18 05:16 | XMS_ITS | Encounter Summary ---
:1995 Author Reason for Visit OB visit OB [id number] EDC 10/16/2021 LMP 01/09/2021 Assessment and Plan Assessment Note Patient is _33__weeks . Dis cussed plan. 1. Routine care Discussion Note: None recorded.Patient educational handouts: No information available. Plan of Care Reminders Provider Appointments Ob Routine 10/20/2021 Ariadne Mary Alice 9:45AM MD Diana ? U/S OB BPP 10/20/2021 Ultras regla TECH 9:00AM ? Nst 10/20/2021 Nst, , EQUI P 8:30AM ? Well on or around Quin Felipe morrison, Woman-est 11/27/2021 CNM Lab None ? [...]
--- OUTSIDE RECORDS SUMMARY | 2021-10-18 05:16 | XMS_ITS | Encounter Summary ---
:1995 Author Reason for Visit None recorded. Assessment and Plan 1. Uterine fibroids affecting pr egnancy ? US, obstetric, follow-up Discussion Note: None recorded.Patient educational handouts: No [...] Surgeries None ? ? recorded. Imaging US, 08/03/2021 [place] [facility], Follow-up Medications Name Start Date ? ? fluconazole [...] Samples given to pt Mei rizo Medications Adm
--- OUTSIDE RECORDS SUMMARY | 2021-10-18 05:16 | XMS_ITS | Encounter Summary ---
:1995 Author Reason for Visit OB visit Assessment and Plan 1. Uterine fibroids affecting pr egnancy 2. Mixed anxiety and depressive disorder ? Zoloft 100 mg tablet Discussion Note: None recorded.Patient educational handouts: No information available. Plan of Care Reminders Provider Appointments Ob Routine 10/20/2021 Ariadne Mary Alice 9:45AM MD Diana ? U/S OB BPP 10/20/2021 Ultras regal, TECH 9:00AM ? Nst 10/20/2021 Nst, RICHI [...] DAY Notes: Samples given to pt Mei Ogden
--- OUTSIDE RECORDS SUMMARY | 2021-10-18 05:16 | XMS_ITS | Encounter Summary ---
[...] Surgeries None ? ? recorded. Imaging US, 09/02/2021 [place] [facility], Follow-up Medications Name Start Date ? [...] Samples given to pt Mei rizo Medications Admi
[2021-10-18] MEDS: AMPICILLIN 2 GM/NS 100 ML 2 GM/100 ML BAG IVPB (05:40)
[2021-10-18] MEDS: LACTATED RINGERS 1,000 ML 125 ML IV CONT (05:40)
[2021-10-18 05:54] LABS: Basophils Percent Auto 0.2 % (0.2-1.2); Eosinophils Absolute Auto 0.1 K/mm3 (0-0.3); Eosinophils Percent Auto 0.5 % (0-4.4); Hematocrit 33.7 % (37.0-47.0); Hemoglobin 10.9 g/dL (12.0-15.0); Immature Granulocyte Absolute 0.13 K/mm3 (0.00-0.031); Immature Granulocyte Percent A 1.2 % (0-0.5); Lymphocytes Absolute Auto 2.16 K/mm3 (0.9-3.2); Lymphocytes Percent Auto 20.1 % (18.3-44.2); Mean Corpuscular HGB Conc 32.3 g/dl (32-36); Mean Corpuscular Hemoglobin 23.4 pg (26-34); Mean Corpuscular Volume 72.5 fl (80-100); Monocytes Absolute Auto 0.9 K/mm3 (0.1-0.6); Monocytes Percent Auto 8.7 % (2.6-8.5); Neutrophils Absolute Auto 7.4 K/mm3 (1.3-6.7); Neutrophils Percent Auto 69.3 % (45.5-73.1); Platelet Count Result 359 k/mm3 (150-375); Red Blood Count 4.65 M/mm3 (4.2-5.4); Red Cell Distribution Width 14.9 % (11.5-14.5); White Blood Count 10.7 K/mm3 (4.5-10.0)
--- NOTE | 2021-10-18 06:07 | LDADM ---
This patient, Loida Onofre, was admitted to Labor/Delivery/Recovery 105 on 10/18/21 at 04:50. Plans for labor, pain management and were discussed with patient. Patient/family oriented to hospital policies and general routines including ID bracelet, bed and alarms, visiting hours, pain management, procedures, bathroom and other care routines, personal items, smoking policy, room service/diet and guest tray routines, infant security routines, and visiting hours. Patient/Family are encouraged to report perceived risks to care and to ask questions if they do not understand what they are told or what they should do. See OBIX for further documentation.
[2021-10-18] MEDS: OXYTOCIN 30 UNITS/NS 500 ML 30 UNITS/500 ML BAG IV CONT (06:15)
--- NOTE | 2021-10-18 06:33 | WPDANESEPPF ---
Anes - Initial Pre Proc Eval Procedure: labor epidural Date/Time: 10/18/21 06:33 Surgeon: Ariadne Ortiz MD Pre Op Diagnosis: labor pain Pre Op Diagnosis: Rupture of Membranes Patient Data Age: 26 Gender: F Height: 1.57 m Weight: 99 kg Last Vital Signs Temp 36.9 C 10/18/21 05:52 Pulse 84 10/18/21 06:31 BP 108/85 10/18/21 06:31 Allergies Allergy/AdvReac Type Severity Reaction Status Date / Time promethazine [From Phenergan] Allergy Itching Verified 09/30/21 14:32 Home Medications Medication Instructions Recorded Confirmed Type prochlorperazine [Compazine] 25 mg RECTAL DAILY #10 ea 08/11/21 09/07/21 Rx ciprofloxacin HCl See Rx Instructions .ROUTE 09/07/21 Rx .COMPLEX #10 ml sertraline 100 mg PO DAILY 09/07/21 09/07/21 History vit-ferrous sulfat-FA 1 tablet PO DAILY 10/18/21 10/18/21 History [] Laboratory Tests 10/18/21 10/18/21 05:46 05:46 WBC 10.7 K/mm3 H K/mm3 (4.5-10.0) RBC 4.65 M/mm3 M/mm3 (4.2-5.4) Hgb 10.9 g/dL L g/dL (12.0-15.0) Hct 33.7 % L % (37.0-47.0) MCV 72.5 fl L fl (80-100) MCH 23.4 pg L pg (26-34) MCHC 32.3 g/dl g/dl (32-36) RDW 14.9 % H % (11.5-14.5) Plt Count 359 k/mm3 k/mm3 (150-375) MPV 10.0 fl fl (7.4-10.4) Immature Gran % (Auto) 1.2 % H % (0-0.5) Neut % (Auto) 69.3 % % (45.5-73.1) Lymph % (Auto) 20.1 % % (18.3-44.2) [place] % (Auto) 8.7 % H % (2.6-8.5) Eos % (Auto) 0.5 % % (0-4.4) Baso % (Auto) 0.2 % % (0.2-1.2) Lymph # (Auto) 2.16 K/mm3 K/mm3 (0.9-3.2) [place] # (Auto) 0.9 K/mm3 H K/mm3 (0.1-0.6) Eos # (Auto) 0.1 K/mm3 K/mm3 (0-0.3) Baso # (Auto) 0.0 K/mm3 K/mm3 (0.0-0.1) Abs Immat Gran (auto) 0.13 K/mm3 H K/mm3 (0.00-0.031) Absolute Neuts (auto) 7.4 K/mm3 H K/mm3 (1.3-6.7) Absolute Nucleated RBC 0.0 K/mm3 K/mm3 (0.0-0.012) Nucleated RBC % 0.0 % % (0.0-0.2) RPR Pending Patient hx anesthesia problems: none Family hx anesthesia problems: none Results Review: All pre-operative results and documents have been reviewed as part of the pre-operative evaluation. [facility] Past Medical History Medical History Anxiety and depression Surgical History Surgical History No history of previous surgery Family History Family History Grandparent Diabetes mellitus Social History Social History Smoking status: Never smoker Second hand tobacco smoke exposure: No Alcohol intake: former Alcohol use details: social only presently is 34 weeks Substance use: never Gender identity (if verbalized by the patient): Female Spiritual care concerns: No Anes - Eval Final PreProcedure Day of Procedure 10/18/21 06:33 Patient weight: obese Heart: regular rate and rhythm Lungs: clear to auscultation and normal air movement Airway: Mallampati scale class II Neurological: alert and oriented ASA classification: II Anesthetic plan: proceed Anesthesia type and monitoring: regional epidural and standard monitoring Results Review: All pre-operative results and documents have been reviewed as part of the pre-operative evaluation. Informed Consent: The patient's anesthetic plan and its attendant risks and benefits were discussed with the patient/family/POA. Questions were solicited and answers provided to the satisfaction of the patient/family/POA.
[2021-10-18] MEDS: AMPICILLIN 1 GM/NS 50 ML 1 GM/50 ML BAG IVPB (10:01)
[2021-10-18] MEDS: ONDANSETRON INJ 4 MG/2 ML VIAL IV PUSH (10:01)
[2021-10-18] MEDS: fentaNYL CITRATE INJ (*CRX) 100 MCG/2 ML VIAL IV PUSH ×2 (10:19→12:16)
--- NOTE | 2021-10-18 10:52 | PM.IMHP ---
H&P: HPI History of Present Illness Date/Time: 10/18/21 10:52 Chief Complaint: SROM Narrative: Loida is a 26yo G1 at 40.3 who presented with SROm. On pitocin, GBS pos. complicated by anxiety on zoloft and fibroids. Review of Systems Review of Systems: All systems reviewed & are unremarkable except as noted in HPI and below PMFSH Past Medical History Medical History Anxiety and depression Surgical History Surgical History No history of previous surgery Family History Family History Grandparent Diabetes mellitus Social History Social History Smoking status: Never smoker Second hand tobacco smoke exposure: No Alcohol intake: former Alcohol use details: social only presently is 34 weeks Substance use: never Gender identity (if verbalized by the patient): Female Spiritual care concerns: No Meds Home Medications and Allergies Home Medications Medication Instructions Recorded Confirmed Type prochlorperazine [Compazine] 25 mg RECTAL DAILY #10 ea 08/11/21 10/18/21 Rx ciprofloxacin HCl See Rx Instructions .ROUTE 09/07/21 10/18/21 Rx .COMPLEX #10 ml sertraline 100 mg PO DAILY 09/07/21 10/18/21 History vit-ferrous sulfat-FA 1 tablet PO DAILY 10/18/21 10/18/21 History [] Allergies Allergy/AdvReac Type Severity Reaction Status Date / Time promethazine [From Phenergan] Allergy Itching Verified 09/30/21 14:32 Vital Signs Vital Signs - 24 hr 10/18/21 05:15 10/18/21 05:30 10/18/21 05:52 Temperature 98.5 F Pulse Rate 84 89 Blood Pressure 109/69 126/87 10/18/21 06:31 10/18/21 06:45 10/18/21 07:01 Temperature Pulse Rate 84 92 86 Blood Pressure 108/85 130/83 132/99 H 10/18/21 07:15 10/18/21 07:30 10/18/21 07:45 Temperature Pulse Rate 97 93 85 Blood Pressure 133/84 131/87 129/77 10/18/21 08:01 10/18/21 08:09 10/18/21 08:15 Temperature 98.2 F Pulse Rate 83 105 H Blood Pressure 125/82 134/105 H 10/18/21 08:22 10/18/21 08:30 10/18/21 08:45 Temperature Pulse Rate 99 85 91 Blood Pressure 123/81 114/73 128/75 10/18/21 09:00 10/18/21 09:16 10/18/21 09:31 Temperature Pulse Rate 85 81 84 Blood Pressure 130/83 126/67 103/65 10/18/21 09:45 10/18/21 10:00 10/18/21 10:23 Temperature Pulse Rate 84 88 79 Blood Pressure 121/82 119/91 H 142/88 H 10/18/21 10:30 10/18/21 10:45 Temperature Pulse Rate 75 83 Blood Pressure 138/83 129/86 Exam Const: General: no acute distress Resp: Effort & Inspection: normal respiratory effort Auscultation: clear to auscultation bilaterally Cardio: Rate: regular rate Rhythm: regular rhythm GI: GI Palp: Yes Soft to palpation Extrem: General: normal to inspection H&P: Results Labs Labs: Short CBC 10/18/21 Range/Units 05:46 WBC 10.7 H (4.5-10.0) K/mm3 Hgb 10.9 L (12.0-15.0) g/dL Hct 33.7 L (37.0-47.0) % Plt Count 359 (150-375) k/mm3 Assessment and Plan Additional Plan Here for SROM at term GBS pos- amp AROM forebag now, clear, /-3 FHT category 1
[2021-10-18] MEDS: LIDOCAINE HCL 1% PF 30 ML VIAL (13:21)
--- NOTE | 2021-10-18 13:41 | P.PCNOB_ITS ---
OB - Delivery Note Procedure Delivery date: 10/18/21 Procedure: Induction method: none Delivery monitor: external FHT and external uterine Route of delivery: Episiotomy description: None Laceration Description: Perineal - 2nd Degree Delivery repair: vicryl Specimen: No Quantitative Blood Loss (ml): 350 Anesthesia type: None Disposition: floor Narrative: The baby delivered precipitously for the RN while I was en route to the hospital. Nuchal cord x1, cord cut per RN. The infant was placed on the mothers chest and suctioned and stimulated. Mother and baby both stable. I arrived to deliver the placenta and do the repair of a second degree laceration, using local anesthesia. [place] Baby Date of : 10/18/21 Time of : 12:52 Weeks of gestation at delivery: 40 Infant gender: Male Weight (pounds): 7 Weight (ounces): 0 presentation: vertex Placenta delivery description: Spontaneous cord vessel description: 3 Vessels and Nuchal Cord score one minute: 9 score five minutes: 9
[2021-10-18] MEDS: OXYTOCIN 30 UNITS/NS 500 ML 30 UNITS/500 ML BAG 125 UNITS IV CONT (13:46)
[2021-10-18] MEDS: BENZOCAINE 20% AER SPR (*SP) 56 GM CAN 1 SPRAY TOPICAL (16:09)
[2021-10-18] MEDS: WITCH HAZEL 40 PADS 1 PAD TOPICAL (16:09)
--- NOTE | 2021-10-18 17:59 | OBPPTRN ---
1658 Patient transferred to post room #283 via W/C. Support person present. Oriented to unit, room, information board, rooming in, admission packet and security measures. Patient verbalizes understanding.
[2021-10-18] MEDS: IBUPROFEN 600 MG TABLET PO (23:26)
[2021-10-19 01:30] VITALS: BP 110/72; PULSE 77; RESP 16; TEMP 36.9
[2021-10-19 04:00] VITALS: BP 117/69; PULSE 76; RESP 16; TEMP 36.6
[2021-10-19 04:28] LABS: Hematocrit 27.6 % (37.0-47.0); Hemoglobin 8.6 g/dL (12.0-15.0)
[2021-10-19] MEDS: DOCUSATE SODIUM 100 MG CAPSULE PO ×2 (07:39→16:47)
[2021-10-19] MEDS: MULTIVIT/MIN/PREN/FOL AC/IRON TABLET 1 TAB PO (07:39)
[2021-10-19] MEDS: TETANUS,DIPHTHERIA,AC PERTUSSIS ADULT (0.5 ML) BOOSTRIX IM (07:40)
[2021-10-19] MEDS: SERTRALINE HCL 50 MG TABLET 100 MG PO (07:43)
[2021-10-19] MEDS: POLYSACCHARIDE IRON COMPLEX 150 MG CAPSULE PO ×2 (07:44→16:47)
--- NOTE | 2021-10-19 07:47 | PM.OBPNVD ---
OB - PN: Subj Subjective Date/time seen: 10/19/21 07:47 Patient comments: no complaints baby status: doing well OB - PN: Obj Data Labs CBC & Chem 7: 10/19/21 03:33 Labs: Laboratory Results - last 24 hr 10/19/21 03:33 Hgb 8.6 L Hct 27.6 L OB - PN A/P Plan day: 1 Plan: routine care Time Spent With Patient Time: Total time spent is greater than 50% in coordination of care (as documented) at patient's floor/unit and/or counseling patient: Time with patient: less than 15 minutes Review of Systems Review of Systems: All systems reviewed & are unremarkable except as noted in HPI and below Exam Narrative: Fundus firm and vaginal flow controlled. No lower ext redness, warmth, or edema. Negative homans. Const: General: comfortable Chest: Breast/axilla inspection: normal inspection of the breasts Resp: Effort & Inspection: normal respiratory effort Cardio: Rate: regular rate GI: GI Palp: Yes Soft to palpation Psych: Appearance: grossly normal Affect: normal affect Attitude: cooperative Thought content: Yes Normal thought content present Judgement: Good judgement present (Psych)
[2021-10-19 07:50] VITALS: BP 109/67; PULSE 81; RESP 16; TEMP 36.7; O2SAT 100
--- NOTE | 2021-10-19 10:15 | PC.NURSE ---
Mother called out for assist with feeding, reporting sleepy and not waking to feed. Discussed timing from last feeding, requesting mother call out for assist at 3 hours from last feeding if unable to wake to feed. . is able to freely thrust tongue past gum ridge and flange both lips. Skin is intact on both nipples, no redness and bruising noted. Reviewed feeding cues, frequencies, duration of feedings, feeding elimination flow sheet, and signs of adequate intake. Demonstrated stimulation techniques to wake for feeding. Assisted with to breast. Reviewed positioning/alignment in cross cradle, holding breast in ?U? hold and guided asymmetrical latch on. Reviewed rational for each. Infant able to latch correctly within a few attempts. Infant nursed eagerly with steady draws and occasional swallowing noted, some pausing noted. Reviewed signs of a correct latch, effective nursing and suck swallow ratio. Suggested mother stimulate while feeding to increase stimulation for milk supply, for increased intake and to assist with maintaining deep latch. would slip to shallow latch causing tenderness. Demonstrated how to adjust latch more deeply while feeding as needed. Mother reports she can feel the difference in latch with no tenderness. Advised mother to hold breast during entire feeding for the next few days to assist infant with maintaining latch. Nipple care reviewed of lanolin after feedings, warm compresses as needed. Instructed mother to call out for RN assistance if she is unable to latch for feeding or she has discomfort with nursing. Instructed feeding should be initiated three hours from start of last feeding or if feeding cues are noted before. Mother voiced understanding of information shared.
[2021-10-19] MEDS: IBUPROFEN 600 MG TABLET PO (10:29)
[2021-10-19 11:22] VITALS: BP 111/62; PULSE 86; RESP 16; TEMP 36.6; O2SAT 99
[2021-10-19 13:26] LABS: Rapid Plasma Reagin Non-Reactive (NonReactive)
[2021-10-19 19:38] VITALS: BP 108/77; PULSE 86; RESP 16; TEMP 36.9
--- NOTE | 2021-10-20 07:59 | PM.OBPNVD ---
OB - PN: Subj Subjective Date/time seen: 10/20/21 07:59 Patient comments: no complaints baby status: doing well OB - PN: Obj Data Labs CBC & Chem 7: 10/19/21 03:33 Labs: Laboratory Results - last 24 hr 10/18/21 05:46 RPR Non-reactive OB - PN A/P Plan day: 2 Plan: routine care and discharge home (F/U in 4 weeks) Time Spent With Patient Time: Total time spent is greater than 50% in coordination of care (as documented) at patient's floor/unit and/or counseling patient: Time with patient: less than 15 minutes Review of Systems Review of Systems: All systems reviewed & are unremarkable except as noted in HPI and below Exam Narrative: Fundus firm and vaginal flow controlled. No lower ext redness, warmth, or edema. Negative homans. Const: General: comfortable Chest: Breast/axilla inspection: normal inspection of the breasts Resp: Effort & Inspection: normal respiratory effort Cardio: Rate: regular rate GI: GI Palp: Yes Soft to palpation Psych: Appearance: grossly normal Affect: normal affect Attitude: cooperative Thought content: Yes Normal thought content present Judgement: Good judgement present (Psych)
[2021-10-20 08:30] VITALS: BP 114/74; PULSE 82; RESP 16; TEMP 36.4; O2SAT 100
[2021-10-20] MEDS: MULTIVIT/MIN/PREN/FOL AC/IRON TABLET 1 TAB PO (08:33)
[2021-10-20] MEDS: POLYSACCHARIDE IRON COMPLEX 150 MG CAPSULE PO (08:33)
[2021-10-20] MEDS: IBUPROFEN 600 MG TABLET PO (08:34)
[2021-10-20] MEDS: SERTRALINE HCL 50 MG TABLET 100 MG PO (08:34)
[2021-10-20] MEDS: DOCUSATE SODIUM 100 MG CAPSULE PO (08:34)
--- NOTE | 2021-10-20 12:00 | PC.NURSE ---
Patient viewed the discharge video Mother & Baby Care, The First Two Weeks . Patient was given the opportunity and encouraged to ask questions. Patient verbalized understanding of information shared and has been given the mother/baby guide for home reference.
[2021-10-21 07:46] VITALS: BP 128/82; PULSE 87; RESP 20; TEMP 36.8; O2SAT 99
--- NOTE | 2021-11-01 09:25 | PM.OBDSVD ---
DS: Admitting Diagnosis Discharge Date 10/20/21 Admitting Diagnosis Labor OB - DS: Summary OB Procedures : None OB Procedures Intrapartum: Spontaneous Vag Delivery OB Procedures: : None Time Spent with Patient Time attestation: Total time spent providing and/or coordinating discharge services: Discharge Plan Discharge Attending physician on discharge: Ariadne Ortiz Consulting providers: Halie Napoles Discharging Clinician: Halie Napoles Patient Disposition: Home, Self-Care Activity: pelvic rest Diet: as tolerated Discharge Instructions: Education: Mom and Baby Guide Given to: Mother Follow-Up: Call your delivering provider's office for an appointment to be seen in: Call for appointment Mom and baby should come to the [facility] for the follow-up appointment. Appointment Date/Time: October 21, 2021 at 8:00 am What to expect at your follow-up visit: Physical Assessment Call [phone] if you are unable to keep your appointment time. BREAST CARE: * Wear a snug supportive bra. * For engorgement discomfort: Breast Feeding: * Apply warm moist washcloths * Express milk as needed to relieve engorgement * Wear loose clothing * For sore nipples: * Identify correct latch-on * Apply warm moist washcloths before and after nursing * Air dry nipples after nursing * May apply Lansinoh cream to nipples EPISIOTOMY/PERINEAL CARE: * Until bleeding stops, use your gerardo bottle after urinating * Change your pad frequently throughout the day * You may take sitz baths several times a day (fill your bathtub with warm water and soak for 20 minutes.) Do NOT bathe in the water * No tub baths until seen by your physician - You may shower ACTIVITY: * Rest as much as possible. * Do not exercise or lift anything heavier than your baby (such as laundry or other children.) * Avoid stairs or driving as much as possible. * Do not put anything into the vagina. No douching, tampons, or sexual activity until seen by physician. NOTIFY PHYSICIAN IF YOU HAVE ANY QUESTIONS OR IF ANY OF THE FOLLOWING SYMPTOMS OCCUR: * If your episiotomy or incision becomes red, swollen, or more painful than what you have experienced in the hospital. * If your vaginal bleeding becomes foul smelling. * If your vaginal bleeding becomes more heavy than a period or if your bleeding changes from pink to bright red. However, you may pass an occasional walnut-sized clot once or twice for the first week . * If you experience a sharp, shooting pain in you calves. * If you discover a hard, reddened area on your breast or if you experience flu-like symptoms. DIET: * Eat regular, well-balanced meals. * Drink plenty of fluids daily. If , drink to thirst. Stand Alone Forms: General Discharge Information Follow-up/Referrals: Ariadne Ortiz MD [Physician] - Discharge Medications: New polysaccharide iron complex 150 mg iron Capsule 150 mg PO BIDWM Qty: 60 RF: 0 Continued sertraline 100 mg tablet 100 mg PO DAILY RF: 0 Discontinued ciprofloxacin HCl 0.3 % drops See Rx Instructions .ROUTE .COMPLEX Qty: 10 RF: 0 prochlorperazine [Compazine] 25 mg Suppository 25 mg RECTAL DAILY Qty: 10 RF: 0 27 mg iron- 0.8 mg Tablet 1 tablet PO DAILY RF: 0 Date of admission: 10/18/21 04:50 Primary Care Provider: PHYSICIAN,[employer]ENEFITS ADMINISTRATOR Admitting Provider: Ariadne Ortiz Attending physician on admission: Ariadne Ortiz. Condition: Stable
== END 2021-10-20 14:18 | disposition home or self-care (01) | DRG 560 ==
LOC: ANHLDR 05:21 → ANHOB2 17:48
PROVIDERS: Admitting Provider Obstetrics & Gynecology; Visit Provider Obstetrics & Gynecology
DX: O62.3 Precipitate labor (principal); O99.824 Streptococcus B carrier state complicating childbirth; O70.1 Second degree perineal laceration during delivery; O69.81X0 Labor and delivery complicated by cord around neck, without compression, not applicable or unspecified; Z3A.40 40 weeks gestation of pregnancy; Z37.0 Single live birth
CPT/HCPCS: 36415; 84112; 85014; 85018; 85025; 86592; 86850; 86900; 86901; 90715; A9270; J0290; J2405; J2590; J3010; J7120

== ENCOUNTER 2023-04-28 19:58 | Emergency (ER) | payer OTHER, SELFPAY ==
--- NOTE | ~2023-04-28 | XR_ITS ---
EXAMINATION: XR chest 2V DATE: 04/29/2023 01:13 INDICATION: Cough and fever TECHNIQUE: Frontal and lateral views of the chest are obtained COMPARISON: None available FINDINGS: The lungs are free of acute opacities. No pleural effusion or pneumothorax. The cardiomedia stinal silhouette is normal. The visualized bones and soft tissues are unremarkable. IMPRESSION: 1. No acute cardiopulmonary abnormality. Reviewed, dictated and finalized at location A.
--- NOTE | ~2023-04-28 | CT_ITS ---
EXAMINATION: CT abdomen pelvis w con INDICATION: Epigastric abdominal pain TECHNIQUE: Computed tomographic images of the abdomen and pelvis were obtained after the administrati on of 100 cc of Omnipaque 350 intravenous contrast. The dose-length product (DLP) was 672.76 mGy-cm. Automated exposure control and iterative reconstruction technique were employed. COMPARISON: None available FINDINGS: Minimal dependent atelectasis is present in the lung bases. The heart size is normal. There is a 1.6 cm mass of the slightly outer right breast. Punctate calcifications in otherwise normal chris earing liver and spleen likely represent healed granulomatous disease. The pancreas, gallbladder, and adrenal glands are normal. The kidneys are unremarkable. No pathologically enlarged abdominal or pel umberto lymph nodes are identified. No free intraperitoneal gas or evidence of bowel obstruction. There i s mild lumbar spondylosis. IMPRESSION: 1. No CT correlate for the patient's symptoms. 2. Right breast mass. Follow-up with nonemergent right breast ultrasound is recommended. Reviewed, dictated and finalized at location A. IMPRESSION: 1. No CT correlate for the patient's symptoms. 2. Right breast mass. Follow-up with nonemergent right breast ultrasound is rec ommended.
[2023-04-28 20:11] VITALS: BP 118/66; PULSE 118; RESP 18; TEMP 39.1; O2SAT 100
[2023-04-28 23:34] VITALS: BP 112/63; PULSE 94; RESP 18; O2SAT 99
[2023-04-29] VITALS (7 sets, daily range): BP systolic 100–120; BP diastolic 55–62; PULSE 90–120; RESP 12–20; TEMP 38.2–38.3; O2SAT 99–100
--- NOTE | 2023-04-29 00:26 | ECG_ITS ---
Measurements Intervals [place] Rate: 110 P: 79 TX: 162 QRS: 67 QRSD: 79 T: 54 QT: 330 QTc: 447 Interpretive Statements SINUS TACHYCARDIA POSSIBLE RIGHT VENTRICULAR CONDUCTION DELAY [RSR (QR) IN V1/V2] ABNORMAL RHYTHM ECG COMPARED TO ECG 04/21/2021 00:19:21 HEART RATE INCREASED NO OTHER DIFFERENCE Electronically Signed On 04-29-2023 13:25:52 CDT by Panfilo Forrester M.D.
--- NOTE | 2023-04-29 00:35 | ED.GENADULT ---
HPI - General Adult General Chief complaint: Unspecified <KRISTINA Mccormick Last Filed: 04/29/23 12:16> Stated complaint: back pain, blurred vision, cold symptoms <Shazia Alcocer PA-C - Last Filed: 04/29/23 12:16> Time Seen by Provider: 04/29/23 00:28 <KRISTINA Mccormick Last Filed: 04/29/23 12:16> History of Present Illness HPI narrative: And is a 28-year-old female here for evaluation of upper back pain, cough, dizziness and generalized malaise x1 day. Patient states she took ibuprofen with good relief of her symptoms but symptoms come back so she came to the ED. She denies past medical history. Has been having a nonproductive cough. Denies shortness of breath, nausea or vomiting, abdominal pain, urinary symptoms. <KRISTINA Mccormick Last Filed: 04/29/23 12:16> Related Data Home medications: Home Medications Medication Instructions Recorded Confirmed sertraline 100 mg tablet 100 mg PO DAILY 09/07/21 10/18/21 <KRISTINA Mccormick Last Filed: 04/29/23 12:16> Allergies/adverse reactions: Allergies Allergy/AdvReac Type Severity Reaction Status Date / Time promethazine [From Phenergan] Allergy Itching Verified 09/30/21 14:32 <KRISTINA Mccormick Last Filed: 04/29/23 12:16> Review of Systems Review of Systems: Gen.: Reports fever Eyes: Reports blurry vision ENT: Denies congestion Respiratory: Reports cough CV: Denies chest pain or palpitations GI: Denies abdominal pain nausea, emesis or diarrhea denies burning, urgency, frequency or hematuria Musculoskeletal: Denies back pain or muscle pain Neuro: Denies numbness, tingling, weakness or focal weakness Skin: Denies rash Except as documented, all other systems reviewed and negative <KRISTINA Mccormick Last Filed: 04/29/23 12:16> [facility] Past Medical History Medical History: Medical History Anxiety and depression <Shazia Alcocer PA-C - Last Filed: 04/29/23 12:16> Surgical History Surgical History: Surgical History No history of previous surgery <Shazia Alcocer PA-C - Last Filed: 04/29/23 12:16> Family History Family History: Family History Grandparent Diabetes mellitus <Shazia Alcocre PA-C - Last Filed: 04/29/23 12:16> Social History Social History: Social History Smoking status: Never smoker Second hand tobacco smoke exposure: No Alcohol intake: former Alcohol use details: social only presently is 34 weeks Substance use: never Living arrangements: with family Gender identity (if verbalized by the patient): Female Spiritual care concerns: No <Shazia Alcocer PA-C - Last Filed: 04/29/23 12:16> Exam Narrative: APPEARANCE: Uncomfortable appearing, warm to touch Head: Normocephalic and atraumatic. EYES: PERRLA/EOMI, conjunctivae clear NOSE: No nasal drainage EARS: External ear normal in appearance THROAT: Oropharynx is clear. Mucous membranes are moist. NECK: There is no nuchal rigidity on examination. Supple. No adenopathy, no masses. RESPIRATORY: Airway patent, respirations nonlabored. Clear to auscultation bilaterally, no rales, rhonchi, wheezing. CARDIOVASCULAR: Tachycardic. ABDOMINAL: Normoactive bowel sounds. Soft, nontender, nondistended. No rebound tenderness or guarding. MUSCULOSKELETAL: Extremities are warm and well-perfused. Moves all extremities well. No edema. NEURO: Normal speech. No focal neurologic deficits. SKIN: Skin is warm and dry. No rashes. PSYCHIATRIC: Normal affect/mood <Shazia Alcocer PA-C - Last Filed: 06/16/23 12:16> Course Course Emergency Course: Bladder distended on CT but pos
[2023-04-29 00:43] LABS: Basophils Percent Auto 0.2 % (0.2-1.2); Hematocrit 34.7 % (37.0-47.0); Hemoglobin 10.9 g/dL (12.0-15.0); Immature Granulocyte Absolute 0.05 K/mm3 (0.00-0.031); Immature Granulocyte Percent A 0.4 % (0-0.5); Lymphocytes Absolute Auto 0.83 K/mm3 (0.9-3.2); Lymphocytes Percent Auto 6.9 % (18.3-44.2); Mean Corpuscular HGB Conc 31.4 g/dl (32-36); Mean Corpuscular Hemoglobin 23.3 pg (26-34); Mean Corpuscular Volume 74.3 fl (80-100); Mean Platelet Volume 9.7 fl (7.4-10.4); Monocytes Absolute Auto 0.9 K/mm3 (0.1-0.6); Monocytes Percent Auto 7.7 % (2.6-8.5); Neutrophils Absolute Auto 10.3 K/mm3 (1.3-6.7); Neutrophils Percent Auto 84.8 % (45.5-73.1); Platelet Count Result 316 k/mm3 (150-375); Red Blood Count 4.67 M/mm3 (4.2-5.4); Red Cell Distribution Width 15.1 % (11.5-14.5); White Blood Count 12.1 K/mm3 (4.5-10.0)
[2023-04-29 00:56] LABS: Alanine Aminotransferase 12 U/L (6-35); Albumin Level 4.3 g/dL (3.5-5.1); Alkaline Phosphatase 75 U/L (38-126); Anion Gap 8 mmol/L (8-16); Aspartate Amino Transferase 45 U/L (14-36); Bilirubin,Total 1.3 mg/dL (0.2-1.3); Blood Urea Nitrogen 10 mg/dL (7-17); Calcium 8.4 mg/dL (8.4-10.2); Carbon Dioxide 25 mmol/L (22-30); Chloride 100 mmol/L (98-107); Estimated CRCL calculation 118 ml/min; Estimated Glomerular Filt Rate > 60; Glucose 113 mg/dL (65-110); Lipase 415 U/L (23-300); Potassium 4.4 mmol/L (3.4-5.0); Sodium 133 mmol/L (137-145)
[2023-04-29] MEDS: ACETAMINOPHEN 500 MG TABLET 1000 MG PO (00:59)
[2023-04-29] MEDS: SODIUM CHLORIDE 0.9% IV 1,000 ML 999 ML IV CONT ×2 (01:00→03:38)
[2023-04-29 01:08] LABS: Lactic Acid Reflex 0.9 mmol/L (0.7-2.0)
[2023-04-29 01:18] LABS: Appearance Urine Clear (Clear); Bacteria Urine 1+ /hpf; Bilirubin Urine Negative (Negative); Blood Urine Negative (Negative); Color Urine Yellow (Yellow); Glucose Urine UA Negative (Negative); Ketones Urine 3+ mg/dL (Negative); Leukocyte Esterase Ur Negative LEU/UL (Negative); Need Manual Microscopic Reviewed; Nitrate Urine Negative (Negative); Non Pathogenic Casts 0-2; Protein Urine 1+ mg/dL (Negative); Specific Grav Ur 1.024 (1.001-1.035); Squamous Epithelial Cell Urine Moderate /hpf (Few); WBC Urine 0-5 /hpf; pH Urine 8.5 (5.0-9.0)
[2023-04-29 01:21] LABS: Add Urine Microscopic? YES
[2023-04-29 01:38] LABS: Influenza A QL RT-PCR Negative (Negative); Influenza B QL RT-PCR Negative (Negative); SARS-CoV-2 RNA PCR Negative (Negative)
[2023-04-29] MEDS: KETOROLAC 15 MG/ML VIAL (*BKC) IV PUSH (01:53)
[2023-04-29] MEDS: MORPHINE SULFATE (*CRX) 2 MG/ML INJ IV PUSH (04:11)
== END 2023-04-29 05:37 | disposition home or self-care (01) ==
PROVIDERS: Physician Assistant; Emergency Provider Emergency Medicine
DX: B34.9 Viral infection, unspecified (principal); Z20.822 Contact with and (suspected) exposure to COVID-19; F41.9 Anxiety disorder, unspecified; F32.A Depression, unspecified
CPT/HCPCS: 36415; 71046; 74177; 80053; 81001; 81025; 83605; 83690; 85025; 87636; 93005; 96361; 96374; 96375; 99284; A9270; J1885; J2270; J7030; Q9967

== ENCOUNTER 2023-05-18 11:16 | Outpatient (CLI) | payer OTHER, SELFPAY ==
--- NOTE | ~2023-05-18 | US_ITS ---
EXAMINATION: US breast RT limited HISTORY: Incidentally detected right breast mass on CT TECHNIQUE: Limited right breast ultrasound was performed. FINDINGS: There is a 1.8 x 1.2 cm oval, circumscribed, parallel, hypoechoic mass with posterior acous tic enhancement and no internal vascularity. 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 Follow-up targeted ri ght breast ultrasound in six months is recommended. BI-RADS category 3, probably benign findings. Reviewed, dictated and finalized at location A. 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 Follow-up targeted right breast ultrasound in six months is recommended. BI-RADS category 3, probably benign findings.
== END 2023-05-18 11:17 | disposition home or self-care (01) ==
LOC: ANHIMG 11:22
PROVIDERS: Visit Provider Nurse Practitioner Obstetrics & Gynecology
DX: N63.10 Unspecified lump in the right breast, unspecified quadrant (principal); R92.8 Other abnormal and inconclusive findings on diagnostic imaging of breast
CPT/HCPCS: 76642

== ENCOUNTER 2023-11-23 05:34 | Inpatient (IN) | payer OTHER, SELFPAY ==
[2023-11-23] VITALS (14 sets, daily range): BP systolic 98–124; BP diastolic 54–88; PULSE 94–125; RESP 18–20; TEMP 36.4–39.9; O2SAT 98–100
--- NOTE | ~2023-11-23 | US_ITS ---
EXAMINATION: US renal BI DATE: 11/27/2023 12:58 INDICATION: Elevated creatinine TECHNIQUE: Multiple grayscale and Doppler ultrasound images of the kidneys were obtained. COMPARISON: None. FINDINGS: The right kidney measures 12.5 x 4.8 x 6.4 cm. The left kidney measures 11.9 x 6.4 x 6.5 cm . The kidneys demonstrate increased parenchymal echogenicity. There is no hydronephrosis. The bladder is normal. There is a small volume of pelvic ascites. IMPRESSION: 1. Medical renal disease. Reviewed, dictated and finalized at location F. OPERATIVE EDUCATOR IMPRESSION: 1. Medical renal disease.
--- NOTE | ~2023-11-23 | XR_ITS ---
Portable chest x-ray Comparison: 04/29/2023 Clinical History: Shortness of breath Findings: Lungs are clear, without focal consolidation or pleural effusion. Cardiomediastinal silho uette is stable. Bones and soft tissues are unremarkable. Impression: Normal chest. Reviewed, dictated and finalized at location . ER SODA Impression: Normal chest.
--- NOTE | ~2023-11-23 | CT_ITS ---
CT of the Abdomen and Pelvis: Indication: Abdominal pain Technique: 2.5 mm axial scans were obtained through the abdomen and pelvis following intravenous adm inistration of 100 cc of Omnipaque 350. Dose reduction technique was used on this scan by utilizing a utomated exposure control and iterative reconstruction technique. The dose-length product (DLP) was 8 55.13 mGy-cm. COMPARISON: 04/29/2023 Findings: Scans through the lung bases are unremarkable. The liver, spleen, pancreas, gallbladder, and adrenal glands are within normal limits. Are probably p atchy areas of decreased renal cortical enhancement bilaterally. No hydronephrosis. No evidence of ao rtic aneurysm. No lymphadenopathy. No bowel obstruction or bowel wall thickening. There is no evidence to suggest acute appendicitis. Images through the pelvis were performed. Urinary bladder wall thickening versus underdistention. No pelvic mass seen. No ascites. Impression: Suspected bilateral pyelonephritis. Correlate clinically and with urinalysis. Suspected cystitis. Reviewed, dictated and finalized at [facility]. HEMICAL DEVELOPMENT ENGINEER Impression: Suspected bilateral pyelonephritis. Correlate clinically and with urinalysis. Suspected cystitis.
--- NOTE | ~2023-11-23 | CT_ITS ---
Non-contrast CT scan of the Abdomen and Pelvis Clinical indication: Elevated creatinine Technique: 2.5 mm axial scans were obtained through the abdomen and pelvis without intravenous or or al contrast. Dose reduction technique was used on this scan by utilizing automated exposure control a nd iterative reconstruction technique. The dose-length product (DLP) was 943.11 mGy-cm. COMPARISON: 11/23/2023 Findings: Images through the lung bases reveal [id number] bilateral pleural effusions with bi basilar atelectatic change. Questionable mild pulmonary edema in the visualized lung bases. There is no evidence of renal or ureteral calculi. The kidneys and the ureters are nondilated. The liver, spleen, pancreas, gallbladder, and adrenals appear normal. There is no aortic aneurysm. There is no evidence of bowel obstruction. Images through the pelvis were performed. There is small amount of abdominal pelvic ascites. Urinary bladder probably distended. No adnexal mass evident. Impression: [id number] bilateral pleural effusions with bibasilar atelectatic change and probable minimal pulmonary edema. These findings are new from prior exam. A small amount of abdominopelvic ascites, no nspecific. Reviewed, dictated and finalized at [facility]. LAY ASSOCIATE Impression: [id number] bilateral pleural effusions with bibasilar atelectatic change and probable minimal pulmonary edema. These findings are new from prior exam. A small amount of abdominopelvic ascites, nonspecific.
[2023-11-23 05:57] LABS: Basophils Percent Auto 0.2 % (0.2-1.2); Hematocrit 37.6 % (37.0-47.0); Hemoglobin 11.6 g/dL (12.0-15.0); Immature Granulocyte Percent A 0.6 % (0-0.5); Lymphocytes Absolute Auto 0.99 K/mm3 (0.9-3.2); Lymphocytes Percent Auto 6.2 % (18.3-44.2); Mean Corpuscular HGB Conc 30.9 g/dl (32-36); Mean Corpuscular Hemoglobin 23.4 pg (26-34); Mean Corpuscular Volume 75.8 fl (80-100); Mean Platelet Volume 10.4 fl (7.4-10.4); Monocytes Absolute Auto 0.9 K/mm3 (0.1-0.6); Monocytes Percent Auto 5.5 % (2.6-8.5); Neutrophils Percent Auto 87.5 % (45.5-73.1); Platelet Count Result 360 k/mm3 (150-375); Red Blood Count 4.96 M/mm3 (4.2-5.4); Red Cell Distribution Width 15.1 % (11.5-14.5)
[2023-11-23] MEDS: KETOROLAC 30 MG/ML VIAL (*BKC) 15 MG IV PUSH (06:15)
[2023-11-23] MEDS: ONDANSETRON INJ 4 MG/2 ML VIAL IV PUSH ×3 (06:15→17:45)
[2023-11-23] MEDS: SODIUM CHLORIDE 0.9% IV 1,000 ML 999 ML IV CONT (06:15)
[2023-11-23 06:19] LABS: Alanine Aminotransferase 13 U/L (6-35); Albumin Level 4.1 g/dL (3.5-5.1); Alkaline Phosphatase 78 U/L (38-126); Anion Gap 10 mmol/L (8-16); Aspartate Amino Transferase 25 U/L (14-36); Bilirubin,Total 1.9 mg/dL (0.2-1.3); Blood Urea Nitrogen 9 mg/dL (7-17); Calcium 8.7 mg/dL (8.4-10.2); Carbon Dioxide 25 mmol/L (22-30); Chloride 100 mmol/L (98-107); Estimated CRCL calculation 92 ml/min; Estimated Glomerular Filt Rate > 60; Glucose 167 mg/dL (65-110); Lipase 113 U/L (23-300); Potassium 3.3 mmol/L (3.4-5.0); Sodium 135 mmol/L (137-145)
[2023-11-23 06:30] LABS: Influenza A QL RT-PCR Negative (Negative); Influenza B QL RT-PCR Negative (Negative); RSV RNA, RT-PCR Negative (Negative); SARS-CoV-2 RNA PCR Negative (Negative)
[2023-11-23 06:39] LABS: Appearance Urine Cloudy (Clear); Color Urine Yellow (Yellow); Specific Grav Ur 1.015 (1.001-1.035)
[2023-11-23 06:40] LABS: Add Urine Microscopic? YES; Bilirubin Urine Negative (Negative); Blood Urine 2+ (Negative); Glucose Urine UA Negative (Negative); Ketones Urine 1+ mg/dL (Negative); Leukocyte Esterase Ur 2+ LEU/UL (Negative); Nitrate Urine Positive (Negative); Protein Urine 2+ mg/dL (Negative)
--- NOTE | 2023-11-23 06:40 | ED.GENADULT ---
HPI - General Adult General Chief complaint: Abdominal Pain <Gustavo Menard MD - Last Filed: 11/23/23 06:42> Stated complaint: flu symptoms <Gustavo Menard MD - Last Filed: 11/23/23 06:42> Time Seen by Provider: 11/23/23 06:03 <Gustavo Menard MD - Last Filed: 11/23/23 06:42> History of Present Illness HPI narrative: Patient 28-year-old female who presents to emergency department with chief complaint of chills body aches cough congestion and abdominal pain. The patient reports she has had multiple episodes of nausea and vomiting is not able to keep fluids down this morning. The patient reports the pain is not improved by anything reports worsened by movement. <Gustavo Menard MD - Last Filed: 11/23/23 06:42> Related Data Home medications: Home Medications Medication Instructions Recorded Confirmed sertraline 100 mg tablet 100 mg PO DAILY 09/07/21 10/18/21 <Gustavo Menard MD - Last Filed: 11/23/23 06:42> Allergies/adverse reactions: Allergies Allergy/AdvReac Type Severity Reaction Status Date / Time promethazine [From Phenergan] Allergy Itching Verified 09/30/21 14:32 <Gustavo Menard MD - Last Filed: 11/23/23 06:42> Review of Systems Review of Systems: A 10 system review of systems was completed on the patient and is negative except for what is stated in the HPI. Nursing and ancillary documentation was reviewed. <Gustavo Menard MD - Last Filed: 11/23/23 06:42> [facility] Past Medical History Medical History: Medical History Anxiety and depression <Gustavo Menard MD - Last Filed: 11/23/23 06:42> Surgical History Surgical History: Surgical History No history of previous surgery <Gustavo Menard MD - Last Filed: 11/23/23 06:42> Family History Family History: Family History Grandparent Diabetes mellitus <Gustavo Menard MD - Last Filed: 11/23/23 06:42> Social History Social History: Social History Smoking status: Never smoker Second hand tobacco smoke exposure: No Alcohol intake: former Alcohol use details: social only presently is 34 weeks Substance use: never Living arrangements: with family Gender identity (if verbalized by the patient): Female Spiritual care concerns: No <Gustavo Menard MD - Last Filed: 11/23/23 06:42> Exam Narrative: GENERAL: Well-appearing, well-nourished, and in no acute distress. HEAD: Normocephalic, atraumatic. EYES: PERRLA and EOMI. ENT: Nares clear, no rhinorrhea or epistaxis. Mucous membranes moist. NECK: Supple. CHEST: Clear to auscultation. No respiratory distress. HEART: Regular rate and rhythm. No murmur heard. Normal peripheral pulses. ABDOMEN: Soft, diffusely tender to palpation, nondistended, normal active bowel sounds. EXTREMITIES: Normal range of motion. No edema. SKIN: Warm, dry, no rash. NEURO: No focal deficits. Alert and oriented x3. PSYCH: Normal mood and affect. <Gustavo Menard MD - Last Filed: 11/23/23 06:42> Course Course Emergency Course: I assumed care of this patient at shift change with pending disposition and CT. I have re-examined the patient is complaining of nausea I did inform her about her lab work, CT findings high temperature is 103? will admit to the hospital for further management. Discussed with Dr. Siegel accepted the patient <Griffin Cardona MD - Last Filed: 11/23/23 08:35> Vital Signs Vital signs: Vital Signs Temperature 37.1 C 11/23/23 05:38 Pulse Rate 99 11/23/23 05:38 Respiratory Rate 18 11/23/23 05:38 Blood Pressure 124/63 11/23/23 05:38 Pulse
[2023-11-23 07:21] LABS: Bacteria Urine 3+ /hpf; Squamous Epithelial Cell Urine Moderate /hpf (Few); WBC Urine >100 /hpf (0-3)
--- NOTE | 2023-11-23 08:07 | PC.NURSE ---
Pt called out with shakes and vomiting, HR elevated to 120. Pt Temp 103.8F, VS reported to Dr. Duran and VO received.
[2023-11-23] MEDS: ACETAMINOPHEN 500 MG TABLET 1000 MG PO (08:12)
[2023-11-23] MEDS: MORPHINE SULFATE (*CRX) 4 MG/ML INJ IV PUSH ×2 (09:19→17:46)
[2023-11-23] MEDS: SODIUM CHLORIDE 0.9% IV 1,000 ML 125 ML IV CONT ×2 (09:22→16:51)
--- NOTE | 2023-11-23 10:21 | ADMGEN ---
This patient, Loida Onofre, was admitted to [facility] Surg Room 332-02. Patient/family oriented to hospital policies and general routines including ID bracelet, bed and alarms, visiting hours, pain management, procedures, bathroom and other care routines, personal items, smoking policy, room service/diet, and visiting hours. Information on how to activate the Rapid Response Team has been discussed. Patient/Family are encouraged to report perceived risks to care and to ask questions if they do not understand what they are told or what they should do.
[2023-11-23] MEDS: ACETAMINOPHEN 325 MG TABLET 650 MG PO ×2 (16:49→21:32)
[2023-11-24] VITALS (9 sets, daily range): BP systolic 98–116; BP diastolic 44–74; PULSE 80–116; RESP 15–20; TEMP 36.5–40; O2SAT 98–100
--- NOTE | 2023-11-24 03:47 | PC.NURSE ---
Addendum entered by Korin Alfredo RN 11/24/23 07:40: Called Dr. Chand again ~0400 by phone to tell her about elevated temp and sepsis alert. Provider gave orders for 1L bolus of NS and 200 mg IV Motrin. Original Note: Went to check on pt ~0320. Pt was shivering and chattering teeth. Asked pt if she was feeling okay, pt stated she felt ill . Asked if she felt if she had a fever again and she said yes. Checked pt's temp orally and she was 104 F. Gave pt Tylenol but she immediately had a small-moderate amount of yellow/orange emesis. Called Dr. Chand to see if other intervention possible but no answer. Left a message.
[2023-11-24] MEDS: SODIUM CHLORIDE 0.9% IV 1,000 ML 999 ML IV CONT ×2 (04:08→15:51)
[2023-11-24] MEDS: IBUPROFEN IVPB (04:10)
[2023-11-24] MEDS: SODIUM CHLORIDE 0.9% IVPB (04:10)
[2023-11-24] MEDS: SODIUM CHLORIDE 0.9% IV 1,000 ML 125 ML IV CONT ×2 (05:43→14:25)
[2023-11-24 06:36] LABS: Hematocrit 30.6 % (37.0-47.0); Hemoglobin 9.3 g/dL (12.0-15.0); Mean Corpuscular HGB Conc 30.4 g/dl (32-36); Mean Corpuscular Hemoglobin 23.2 pg (26-34); Mean Corpuscular Volume 76.3 fl (80-100); Mean Platelet Volume 9.9 fl (7.4-10.4); Platelet Count Result 221 k/mm3 (150-375); Red Blood Count 4.01 M/mm3 (4.2-5.4); Red Cell Distribution Width 15.1 % (11.5-14.5)
[2023-11-24 06:51] LABS: Anion Gap 8 mmol/L (8-16); Blood Urea Nitrogen 6 mg/dL (7-17); Calcium 6.9 mg/dL (8.4-10.2); Carbon Dioxide 20 mmol/L (22-30); Chloride 106 mmol/L (98-107); Estimated CRCL calculation 107 ml/min; Estimated Glomerular Filt Rate > 60; Glucose 115 mg/dL (65-110); Sodium 134 mmol/L (137-145)
[2023-11-24 06:53] LABS: Potassium 2.8 mmol/L (3.4-5.0)
[2023-11-24 07:19] LABS: Band Neutrophils Percent 11 % (0-6); Neutrophils Percent Manual 84 % (46-73); Platelet Estimate Adequate (Adequate); Schistocytes None Seen (NORMAL); Total Cells Counted 100
[2023-11-24 07:20] LABS: Hypochromasia 1+ (NORMAL)
[2023-11-24] MEDS: MORPHINE SULFATE (*CRX) 4 MG/ML INJ IV PUSH ×3 (09:13→15:52)
[2023-11-24] MEDS: POTASSIUM CHLORIDE INJ 40 MEQ in SODIUM CHLORIDE 0.9% IV 500 ML 130 MEQ IVPB (09:14)
[2023-11-24] MEDS: ONDANSETRON INJ 4 MG/2 ML VIAL IV PUSH (09:14)
--- NOTE | 2023-11-24 10:23 | PM.IMHP ---
H&P: HPI History of Present Illness Date/Time: 11/23/23 10:23 Chief Complaint: fever, flank pain Narrative: 28 year old female here with fevers, flank pain and dysuria. No chest pain or shortness of breath. No nausea, vomiting or diarrhea. No fevers or chills. She states her back and flank hurt over the last few days. In the ER, she was found to have positive UA for UTI and started on antibiotics. Imaging showed cystitis and possible bilateral pyelonephritis. Review of Systems Review of Systems: 12 point review of systems was assessed and was negative except as noted in the HPI [facility] Past Medical History Medical History Anxiety and depression Surgical History Surgical History No history of previous surgery Family History Family History Grandparent Diabetes mellitus Social History Social History Smoking status: Never smoker Second hand tobacco smoke exposure: No Alcohol intake: never Alcohol use details: social only presently is 34 weeks Substance use: never Do You Feel Safe in your Home?: Yes Lack of Transportation: No Lack of Food: Never True Current Housing: I Have Housing Concerned About Future Housing: No Difficulty Paying Gas/Electric Bills: No Difficulty Paying for Meds: No Currently Unemployed: No Education: High School Diploma/GED Difficulty w/ Childcare or Family Care: No Living arrangements: with family Gender identity (if verbalized by the patient): Female Spiritual care concerns: No Meds Home Medications and Allergies Home Medications Medication Instructions Recorded Confirmed Type sertraline 100 mg tablet 100 mg PO DAILY 09/07/21 11/23/23 History Allergies Allergy/AdvReac Type Severity Reaction Status Date / Time promethazine [From Phenergan] Allergy Itching Verified 09/30/21 14:32 Vital Signs Vital Signs - 24 hr 11/23/23 14:00 11/23/23 16:49 11/23/23 21:13 Temperature 97.6 F 101.3 F H 101.9 F H Pulse Rate 94 113 H Respiratory Rate 19 18 Blood Pressure 100/60 99/54 L Pulse Oximetry 100 98 Oxygen Delivery 11/23/23 21:32 11/23/23 20:20 11/23/23 22:42 Temperature 101.9 F H 99.9 F H Pulse Rate Respiratory Rate Blood Pressure Pulse Oximetry Oxygen Delivery Room Air 11/23/23 22:32 11/24/23 03:31 11/24/23 03:37 Temperature 99.9 F H 104 F H Pulse Rate 116 H Respiratory Rate 16 Blood Pressure 98/45 L Pulse Oximetry 100 Oxygen Delivery 11/24/23 04:10 11/24/23 05:10 11/24/23 05:20 Temperature 104 F H 100.4 F H 100.4 F H Pulse Rate 98 Respiratory Rate 18 Blood Pressure 98/60 L Pulse Oximetry 100 Oxygen Delivery Exam Narrative: General: No acute distress, alert and oriented per baseline HEENT: Atraumatic, normocephalic, mucous membranes moist CV: Regular rate and rhythm, S1, S2 Lungs: Clear to auscultation bilaterally, no rales or crackles noted, no wheezes, good air entry Abdomen: Soft, nontender, nondistended Extremities: Normal to inspection Skin: No rashes noted, no lesions or wounds seen Psych: Euthymic, normal affect H&P: Results Labs Labs: Short CBC 11/24/23 Range/Units 06:05 WBC 16.0 H (4.5-10.0) K/mm3 Hgb 9.3 L (12.0-15.0) g/dL Hct 30.6 L (37.0-47.0) % Plt Count 221 (150-375) k/mm3 [facility] 11/24/23 06:05 Sodium 134 L Potassium 2.8 L* Chloride 106 Carbon Dioxide 20 L BUN 6 L Creatinine 0.70 Glucose 115 H Calcium 6.9 L Assessment and Plan Assessment and plan (1) Pyelonephritis: Code(s): N12 - Tubulo-interstitial nephritis, not specified as acute or chronic Status: Acute Assessment and Plan: Rocephin initiated 11/23 IV fluids, supportive ca
[2023-11-24 14:57] LABS: Basophils Percent Auto 0.2 % (0.2-1.2); Eosinophils Percent Auto 0.2 % (0-4.4); Hemoglobin 9.7 g/dL (12.0-15.0); Immature Granulocyte Absolute 0.12 K/mm3 (0.00-0.031); Immature Granulocyte Percent A 0.7 % (0-0.5); Lymphocytes Absolute Auto 1.11 K/mm3 (0.9-3.2); Lymphocytes Percent Auto 6.9 % (18.3-44.2); Mean Corpuscular HGB Conc 29.4 g/dl (32-36); Mean Corpuscular Volume 78.4 fl (80-100); Mean Platelet Volume 10.2 fl (7.4-10.4); Monocytes Absolute Auto 1.3 K/mm3 (0.1-0.6); Neutrophils Absolute Auto 13.6 K/mm3 (1.3-6.7); Platelet Count Result 247 k/mm3 (150-375); Red Blood Count 4.21 M/mm3 (4.2-5.4); Red Cell Distribution Width 15.4 % (11.5-14.5); White Blood Count 16.2 K/mm3 (4.5-10.0)
[2023-11-24 15:11] LABS: Lactic Acid Reflex 2.1 mmol/L (0.7-2.0)
[2023-11-24 15:17] LABS: Alanine Aminotransferase 10 U/L (6-35); Albumin Level 3.2 g/dL (3.5-5.1); Alkaline Phosphatase 82 U/L (38-126); Anion Gap 10 mmol/L (8-16); Aspartate Amino Transferase 22 U/L (14-36); Bilirubin,Total 0.9 mg/dL (0.2-1.3); Blood Urea Nitrogen 5 mg/dL (7-17); Calcium 7.1 mg/dL (8.4-10.2); Carbon Dioxide 20 mmol/L (22-30); Chloride 108 mmol/L (98-107); Estimated CRCL calculation 107 ml/min; Estimated Glomerular Filt Rate > 60; Glucose 105 mg/dL (65-110); Potassium 3.9 mmol/L (3.4-5.0); Sodium 138 mmol/L (137-145)
--- NOTE | 2023-11-24 15:45 | PM.IMPN ---
Progress Note: A&P Assessment and Plan (1) Pyelonephritis: Code(s): N12 - Tubulo-interstitial nephritis, not specified as acute or chronic Status: Acute Assessment and Plan: Rocephin initiated 11/23 IV fluids, supportive care Follow-up urine culture 11/24: Due to worsening leukocytosis and fevers, antibiotics escalated to Zosyn, follow-up culture Plan DVT prophylaxis with SCDs GI prophylaxis not indicated Code status full code Subjective Date/time seen: 11/24/23 15:45 Interval history: No overnight events noted. No chest pain or shortness of breath. Complaining of nausea without any emesis. No fevers or chills. Patient did start her period today and was complaining of uterine cramping as well. Review of Systems Review of Systems: 12 point review of systems was assessed and was negative except as noted in the HPI Exam Narrative: General: No acute distress, alert and oriented per baseline HEENT: Atraumatic, normocephalic, mucous membranes moist CV: Regular rate and rhythm, S1, S2 Lungs: Clear to auscultation bilaterally, no rales or crackles noted, no wheezes, good air entry Abdomen: Soft, nontender, nondistended Extremities: Normal to inspection Skin: No rashes noted, no lesions or wounds seen Psych: Euthymic, normal affect Objective Data Vital Signs Vital Signs: Vital Signs - 24 hr 11/23/23 16:49 11/23/23 21:13 11/23/23 21:32 Temperature 101.3 F H 101.9 F H 101.9 F H Pulse Rate 113 H Respiratory Rate 18 Blood Pressure 99/54 L Pulse Oximetry 98 Oxygen Delivery 11/23/23 20:20 11/23/23 22:42 11/23/23 22:32 Temperature 99.9 F H 99.9 F H Pulse Rate Respiratory Rate Blood Pressure Pulse Oximetry Oxygen Delivery Room Air 11/24/23 03:31 11/24/23 03:37 11/24/23 04:10 Temperature 104 F H 104 F H Pulse Rate 116 H Respiratory Rate 16 Blood Pressure 98/45 L Pulse Oximetry 100 Oxygen Delivery 11/24/23 05:10 11/24/23 05:20 11/24/23 08:00 Temperature 100.4 F H 100.4 F H 97.7 F Pulse Rate 98 80 Respiratory Rate 18 15 Blood Pressure 98/60 L 103/59 L Pulse Oximetry 100 100 Oxygen Delivery Intake/Output Intake/Output: Intake & Output 11/21/23 11/22/23 11/23/23 11/24/23 23:59 23:59 23:59 23:59 Intake Total 2590 2242 Balance 2590 2242 Meds/Results Medications: Active Medications Generic Name Dose Route Start Last Admin Trade Name Freq PRN Reason Stop Dose Admin Acetaminophen 650 mg 11/23/23 08:29 11/23/23 21:32 Acetaminophen 325 Mg Tablet PO 650 mg Q4H PRN Administration Mild Pain (1-3) or Fever Acetaminophen 1,000 mg 11/24/23 16:00 Acetaminophen 500 Mg Tablet PO Q8H JYOTHI Sodium Chloride 1,000 mls @ 125 mls/hr 11/23/23 08:30 11/24/23 05:43 Normal Saline Iv IV CONT 125 mls/hr .Q8H JYOTHI Administration Potassium Chloride 40 meq/ 520 mls @ 130 mls/hr 11/24/23 14:00 Sodium Chloride IVPB 11/24/23 17:59 ONCE ONE Sodium Chloride 1,000 mls @ 999 mls/hr 11/24/23 15:35 Normal Saline Iv IV CONT 11/24/23 16:35 .Q1H1M ONE Sodium Chloride 1,000 mls @ 100 mls/hr 11/24/23 15:40 Normal Saline Iv IV CONT .Q10H JYOTHI Piperacillin/Tazobactam/Dextrose 3.375 gm in 50 mls @ 100 mls/hr 11/24/23 18:00 Zosyn 3.375 Gm/Ns 50 Ml IVPB Q6H [facility] Ketorolac Tromethamine 30 mg 11/23/23 08:29 Ketorolac 30 Mg/Ml Vial (*Bkc) IV PUSH 11/28/23 08:28 Q6H PRN Pain Rated 4-6 Metoclopramide HCl 5 mg 11/24/23 15:45 Metoclopramide Hcl Inj 10 Mg/2 Ml Vial IV PUSH Q6HR [facility] Morphine Sulfate 4 mg 11/23/23 08:29 11/24/23 12:46 Morphine Sulfate (*Crx) 4 Mg/Ml Inj IV PUSH 4 mg Q2H PRN Administration Pain Rated 7-10 Ondansetron HCl 4 mg 11/23/23 16:56 11/24/23 09:14 Ondansetron Inj 4 Mg/2 Ml Vial IV PUSH 4 mg Q4H PRN Administration Nausea And Vomiting Radiology Results: ITS Impre
[2023-11-24 15:52] LABS: CRP 20.1 mg/dL (<1.0)
[2023-11-24] MEDS: METOCLOPRAMIDE HCL INJ 10 MG/2 ML VIAL 5 MG IV PUSH ×2 (15:52→17:29)
[2023-11-24] MEDS: KETOROLAC 15 MG/ML VIAL (*BKC) IV PUSH (15:59)
[2023-11-24] MEDS: SODIUM CHLORIDE 0.9% IV 1,000 ML 100 ML IV CONT ×2 (17:32→23:18)
[2023-11-24] MEDS: ACETAMINOPHEN 500 MG TABLET 1000 MG PO (17:33)
[2023-11-24 17:53] LABS: Reflex Lactic Acid Yes or No Add Lactic
[2023-11-24] MEDS: PIPERACILLN/TAZ 3.375GM/NS50ML 3.375 GM/50 ML BAG IVPB (18:03)
--- NOTE | 2023-11-24 18:57 | PC.NURSE ---
Received report from night RN; pt resting comfortably at this time. Pt later called out approx 0830 in pain. Gave morphine and pt shortly thereafter sleeping. Pt woke up later in extreme pain stating she is unable to move. Temp starting to elevate. Requested non oral fever development coach as pt vomited last night on tylenol r/t fever. Pt very rigid, stating she cannot even turn over. Pt left hand in a trousseau position. Called MD to come to bedside as pt low K and low Ca. Unsure if pain r/t hypoK cramps, bilateral pylonephritis, or possibly tetany. No Chovstek sign, but pt rigid movments. Vitals stable. MD put in multiple orders. Orders executed. Pt states improved pain/comfort. Report given to night RN who will continue to monitor.
[2023-11-25] VITALS (8 sets, daily range): BP systolic 102–134; BP diastolic 56–84; PULSE 62–120; RESP 16–18; TEMP 36.6–39.2; O2SAT 80–100
[2023-11-25] MEDS: ACETAMINOPHEN 500 MG TABLET 1000 MG PO ×4 (00:21→23:35)
[2023-11-25] MEDS: PIPERACILLN/TAZ 3.375GM/NS50ML 3.375 GM/50 ML BAG IVPB ×5 (00:21→23:34)
[2023-11-25] MEDS: METOCLOPRAMIDE HCL INJ 10 MG/2 ML VIAL 5 MG IV PUSH ×5 (00:23→23:36)
[2023-11-25] MEDS: ONDANSETRON INJ 4 MG/2 ML VIAL IV PUSH ×3 (01:35→20:15)
[2023-11-25] MEDS: MORPHINE SULFATE (*CRX) 4 MG/ML INJ IV PUSH ×4 (01:35→15:50)
[2023-11-25] MEDS: KETOROLAC 30 MG/ML VIAL (*BKC) IV PUSH ×2 (05:07→20:16)
[2023-11-25] MEDS: SODIUM CHLORIDE 0.9% IV 1,000 ML 100 ML IV CONT (10:23)
--- NOTE | 2023-11-25 10:42 | PM.IMPN ---
Progress Note: A&P Assessment and Plan (1) Pyelonephritis: Code(s): N12 - Tubulo-interstitial nephritis, not specified as acute or chronic Status: Acute Assessment and Plan: Rocephin initiated 11/23 IV fluids, supportive care Follow-up urine culture 11/24: Due to worsening leukocytosis and fevers, antibiotics escalated to Zosyn, follow-up culture 11/25: Patient continues to have fevers, vanc added, follow-up cultures Plan DVT prophylaxis with SCDs GI prophylaxis not indicated Code status full code Subjective Date/time seen: 11/25/23 10:42 Interval history: 28-year-old female with no past medical history is presenting with fevers and flank pain and being treated for pyelonephritis with associated sepsis. T-max 100.5? overnight, 102.5 later this day. Fevers trending down overall. No overnight events noted. No chest pain or shortness of breath. No nausea, vomiting or diarrhea. Review of Systems Review of Systems: 12 point review of systems was assessed and was negative except as noted in the HPI Exam Narrative: General: No acute distress, alert and oriented per baseline HEENT: Atraumatic, normocephalic, mucous membranes moist CV: Regular rate and rhythm, S1, S2 Lungs: Clear to auscultation bilaterally, no rales or crackles noted, no wheezes, good air entry Abdomen: Soft, nontender, nondistended Extremities: Normal to inspection Skin: No rashes noted, no lesions or wounds seen Psych: Euthymic, normal affect Objective Data Vital Signs Vital Signs: Vital Signs - 24 hr 11/24/23 14:00 11/24/23 16:00 11/24/23 20:45 Temperature 99.4 F 102.3 F H 99 F Pulse Rate 106 H 106 H 101 H Respiratory Rate 18 20 18 Blood Pressure 116/74 102/47 L 98/44 L Pulse Oximetry 100 100 98 Oxygen Delivery 11/25/23 00:21 11/24/23 20:58 11/25/23 06:27 Temperature 98 F 99.8 F H Pulse Rate 78 Respiratory Rate 18 Blood Pressure 111/68 Pulse Oximetry 96 Oxygen Delivery Room Air 11/25/23 04:55 11/25/23 08:00 11/25/23 09:00 Temperature 100.5 F H 98.6 F Pulse Rate 91 92 Respiratory Rate 18 18 Blood Pressure 118/56 L 122/68 Pulse Oximetry 98 80 L Oxygen Delivery Room Air Intake/Output Intake/Output: Intake & Output 11/22/23 11/23/23 11/24/23 11/25/23 23:59 23:59 23:59 23:59 Intake Total 2590 5732 1858 Output Total 700 Balance 2590 5732 1158 Meds/Results Medications: Active Medications Generic Name Dose Route Start Last Admin Trade Name Freq PRN Reason Stop Dose Admin Acetaminophen 650 mg 11/23/23 08:29 11/23/23 21:32 Acetaminophen 325 Mg Tablet PO 650 mg Q4H PRN Administration Mild Pain (1-3) or Fever Acetaminophen 1,000 mg 11/24/23 16:00 11/25/23 09:00 Acetaminophen 500 Mg Tablet PO 1,000 mg Q8H JYOTHI Administration Sodium Chloride 1,000 mls @ 100 mls/hr 11/24/23 15:40 11/25/23 10:23 Normal Saline Iv IV CONT 100 mls/hr .Q10H JYOTHI Administration Piperacillin/Tazobactam/Dextrose 3.375 gm in 50 mls @ 100 mls/hr 11/24/23 18:00 11/25/23 05:41 Zosyn 3.375 Gm/Ns 50 Ml IVPB Infused Q6H [facility] Infusion Ketorolac Tromethamine 30 mg 11/23/23 08:29 11/25/23 05:07 Ketorolac 30 Mg/Ml Vial (*Bkc) IV PUSH 11/28/23 08:28 30 mg Q6H PRN Administration Pain Rated 4-6 Metoclopramide HCl 5 mg 11/24/23 15:45 11/25/23 05:11 Metoclopramide Hcl Inj 10 Mg/2 Ml Vial IV PUSH 5 mg Q6HR JYOTHI Administration Morphine Sulfate 4 mg 11/23/23 08:29 11/25/23 09:02 Morphine Sulfate (*Crx) 4 Mg/Ml Inj IV PUSH 4 mg Q2H PRN Administration Pain Rated 7-10 Ondansetron HCl 4 mg 11/23/23 16:56 11/25/23 01:35 Ondansetron Inj 4 Mg/2 Ml Vial IV PUSH 4 mg Q4H PRN Administration Nausea And Vomiting Vancomycin HCl 1 each 11/25/23 10:40 Vancomycin Pharmacist To Dose IVPB PER PROTOCOL JYOTHI Radiology Results: ITS Impressions Chest X-Ray 11/23/23 07:15 Imp
[2023-11-25 11:00] LABS: Basophils Percent Auto 0.1 % (0.2-1.2); Eosinophils Percent Auto 0.2 % (0-4.4); Hematocrit 31.5 % (37.0-47.0); Hemoglobin 9.7 g/dL (12.0-15.0); Immature Granulocyte Absolute 0.13 K/mm3 (0.00-0.031); Lymphocytes Absolute Auto 1.14 K/mm3 (0.9-3.2); Lymphocytes Percent Auto 8.3 % (18.3-44.2); Mean Corpuscular HGB Conc 30.8 g/dl (32-36); Mean Corpuscular Hemoglobin 23.5 pg (26-34); Mean Corpuscular Volume 76.5 fl (80-100); Mean Platelet Volume 10.2 fl (7.4-10.4); Neutrophils Absolute Auto 11.4 K/mm3 (1.3-6.7); Neutrophils Percent Auto 83.4 % (45.5-73.1); Platelet Count Result 227 k/mm3 (150-375); Red Blood Count 4.12 M/mm3 (4.2-5.4); Red Cell Distribution Width 15.5 % (11.5-14.5); White Blood Count 13.7 K/mm3 (4.5-10.0)
[2023-11-25 11:13] LABS: Lactic Acid Reflex 0.9 mmol/L (0.7-2.0)
[2023-11-25 11:17] LABS: Alanine Aminotransferase 9 U/L (6-35); Albumin Level 2.9 g/dL (3.5-5.1); Alkaline Phosphatase 82 U/L (38-126); Anion Gap 7 mmol/L (8-16); Aspartate Amino Transferase 25 U/L (14-36); Bilirubin,Total 0.7 mg/dL (0.2-1.3); Blood Urea Nitrogen 4 mg/dL (7-17); Calcium 7.3 mg/dL (8.4-10.2); Carbon Dioxide 22 mmol/L (22-30); Chloride 108 mmol/L (98-107); Estimated CRCL calculation 95 ml/min; Estimated Glomerular Filt Rate > 60; Glucose 104 mg/dL (65-110); Potassium 3.3 mmol/L (3.4-5.0); Sodium 137 mmol/L (137-145)
[2023-11-25] MEDS: VANCOMYCIN 1,250 MG/NS 250 ML 1,250 MG/250 ML BAG 166.67 MG IVPB (12:57)
[2023-11-25] MEDS: VANCOMYCIN 1,000 MG/NS 250 ML 1,000 MG/250 ML BAG 250 MG IVPB (15:00)
[2023-11-25 16:10] LABS: MRSA (PCR) NOT DETECTED (NOT DETECTE)
[2023-11-25] MEDS: VANCOMYCIN 1,500 MG/NS 500 ML 1,500 MG/500 ML BAG 250 MG IVPB (23:42)
[2023-11-26] MEDS: ONDANSETRON INJ 4 MG/2 ML VIAL IV PUSH ×3 (00:22→10:05)
[2023-11-26] MEDS: SODIUM CHLORIDE 0.9% IV 1,000 ML 100 ML IV CONT ×2 (00:22→17:13)
[2023-11-26 06:15] LABS: Basophils Percent Auto 0.3 % (0.2-1.2); Eosinophils Absolute Auto 0.3 K/mm3 (0-0.3); Eosinophils Percent Auto 2.4 % (0-4.4); Hematocrit 31.5 % (37.0-47.0); Hemoglobin 9.5 g/dL (12.0-15.0); Immature Granulocyte Absolute 0.18 K/mm3 (0.00-0.031); Immature Granulocyte Percent A 1.6 % (0-0.5); Lymphocytes Absolute Auto 1.47 K/mm3 (0.9-3.2); Lymphocytes Percent Auto 12.7 % (18.3-44.2); Mean Corpuscular HGB Conc 30.2 g/dl (32-36); Mean Corpuscular Hemoglobin 23.2 pg (26-34); Mean Corpuscular Volume 76.8 fl (80-100); Mean Platelet Volume 10.6 fl (7.4-10.4); Monocytes Absolute Auto 0.5 K/mm3 (0.1-0.6); Monocytes Percent Auto 4.5 % (2.6-8.5); Neutrophils Absolute Auto 9.1 K/mm3 (1.3-6.7); Neutrophils Percent Auto 78.5 % (45.5-73.1); Platelet Count Result 218 k/mm3 (150-375); Red Cell Distribution Width 15.6 % (11.5-14.5); White Blood Count 11.6 K/mm3 (4.5-10.0)
[2023-11-26] MEDS: MORPHINE SULFATE (*CRX) 4 MG/ML INJ IV PUSH ×3 (06:19→17:07)
[2023-11-26 06:21] VITALS: BP 124/87; PULSE 86; RESP 21; TEMP 36.5; O2SAT 100
[2023-11-26] MEDS: METOCLOPRAMIDE HCL INJ 10 MG/2 ML VIAL 5 MG IV PUSH ×3 (06:21→17:12)
[2023-11-26] MEDS: PIPERACILLN/TAZ 3.375GM/NS50ML 3.375 GM/50 ML BAG IVPB ×3 (06:27→17:18)
[2023-11-26 06:35] LABS: Potassium 3.8 mmol/L (3.4-5.0)
[2023-11-26 06:39] LABS: Alanine Aminotransferase 6 U/L (6-35); Albumin Level 2.5 g/dL (3.5-5.1); Alkaline Phosphatase 71 U/L (38-126); Anion Gap 5 mmol/L (8-16); Aspartate Amino Transferase 20 U/L (14-36); Bilirubin,Total 0.8 mg/dL (0.2-1.3); Blood Urea Nitrogen 6 mg/dL (7-17); Calcium 6.9 mg/dL (8.4-10.2); Carbon Dioxide 19 mmol/L (22-30); Chloride 111 mmol/L (98-107); Estimated CRCL calculation 42 ml/min; Estimated Glomerular Filt Rate 38; Glucose 95 mg/dL (65-110); Sodium 135 mmol/L (137-145)
[2023-11-26 06:43] LABS: Hypochromasia 1+ (NORMAL); Platelet Estimate Adequate (Adequate)
[2023-11-26 06:44] LABS: Burr Cells 1+ (NORMAL); Schistocytes None Seen (NORMAL)
[2023-11-26 08:00] VITALS: TEMP 37.8
[2023-11-26] MEDS: ACETAMINOPHEN 500 MG TABLET 1000 MG PO ×2 (08:32→17:12)
[2023-11-26] MEDS: VANCOMYCIN 1,500 MG/NS 500 ML 1,500 MG/500 ML BAG 250 MG IVPB (10:06)
[2023-11-26 12:44] VITALS: TEMP 37.8
[2023-11-26 14:00] VITALS: BP 106/62; PULSE 69; RESP 18; TEMP 38.3; O2SAT 94
--- NOTE | 2023-11-26 14:42 | PM.IMPN ---
Progress Note: A&P Assessment and Plan (1) Pyelonephritis: Code(s): N12 - Tubulo-interstitial nephritis, not specified as acute or chronic Status: Acute Assessment and Plan: Rocephin initiated 11/23, switched to zosyn 11/24, vanc added 11/25 IV fluids, supportive care Follow-up urine culture 11/24: Due to worsening leukocytosis and fevers, antibiotics escalated to Zosyn, follow-up culture 11/25: Patient continues to have fevers, vanc added, follow-up cultures 11/26: Fevers improving, leuk trending down, all cultures NGTD, repeat CRP/PCT, suspect viral etiology? unknown source? Plan DVT prophylaxis with SCDs GI prophylaxis not indicated Code status full code Subjective Date/time seen: 11/26/23 14:42 Interval history: 28-year-old female with no past medical history is presenting with fevers and flank pain and being treated for pyelonephritis with associated sepsis. T-max 100.1? overnight. Fevers trending down overall. No overnight events noted. No chest pain or shortness of breath. No nausea, vomiting or diarrhea. Patient states she is feeling much better. Review of Systems Review of Systems: 12 point review of systems was assessed and was negative except as noted in the HPI Exam Narrative: General: No acute distress, alert and oriented per baseline HEENT: Atraumatic, normocephalic, mucous membranes moist CV: Regular rate and rhythm, S1, S2 Lungs: Clear to auscultation bilaterally, no rales or crackles noted, no wheezes, good air entry Abdomen: Soft, nontender, nondistended Extremities: Normal to inspection Skin: No rashes noted, no lesions or wounds seen Psych: Euthymic, normal affect Objective Data Vital Signs Vital Signs: Vital Signs - 24 hr 11/25/23 16:00 11/25/23 22:25 11/25/23 20:10 Temperature 100.8 F H 98.0 F Pulse Rate 62 111 H Respiratory Rate 18 18 Blood Pressure 102/84 116/73 Pulse Oximetry 100 95 Oxygen Delivery Room Air 11/26/23 06:21 11/26/23 08:00 11/26/23 12:44 Temperature 97.7 F 100.0 F H 100.1 F H Pulse Rate 86 Respiratory Rate 21 H Blood Pressure 124/87 Pulse Oximetry 100 Oxygen Delivery 11/26/23 08:30 Temperature Pulse Rate Respiratory Rate Blood Pressure Pulse Oximetry Oxygen Delivery Room Air Intake/Output Intake/Output: Intake & Output 11/23/23 11/24/23 11/25/23 11/26/23 23:59 23:59 23:59 23:59 Intake Total 2590 5732 4318 1580 Output Total 1400 Balance 2590 5732 2918 1580 Meds/Results Medications: Active Medications Generic Name Dose Route Start Last Admin Trade Name Freq PRN Reason Stop Dose Admin Acetaminophen 650 mg 11/23/23 08:29 11/23/23 21:32 Acetaminophen 325 Mg Tablet PO 650 mg Q4H PRN Administration Mild Pain (1-3) or Fever Acetaminophen 1,000 mg 11/24/23 16:00 11/26/23 08:32 Acetaminophen 500 Mg Tablet PO 1,000 mg Q8H JYOTHI Administration Sodium Chloride 1,000 mls @ 100 mls/hr 11/24/23 15:40 11/26/23 08:34 Normal Saline Iv IV CONT Not Given .Q10H JYOTHI Piperacillin/Tazobactam/Dextrose 3.375 gm in 50 mls @ 100 mls/hr 11/24/23 18:00 11/26/23 12:10 Zosyn 3.375 Gm/Ns 50 Ml IVPB 100 mls/hr Q6H JYOTHI Administration Vancomycin HCl 1,500 mg in 500 mls @ 250 mls/hr 11/25/23 23:00 11/26/23 10:06 Vancomycin 1,500 Mg/Ns 500 Ml IVPB 250 mls/hr Q12H JYOTHI Administration Ketorolac Tromethamine 30 mg 11/23/23 08:29 11/25/23 20:16 Ketorolac 30 Mg/Ml Vial (*Bkc) IV PUSH 11/28/23 08:28 30 mg Q6H PRN Administration Pain Rated 4-6 Metoclopramide HCl 5 mg 11/24/23 15:45 11/26/23 12:10 Metoclopramide Hcl Inj 10 Mg/2 Ml Vial IV PUSH 5 mg Q6HR JYOTHI Administration Morphine Sulfate 4 mg 11/23/23 08:29 11/26/23 12:09 Morphine Sulfate (*Crx) 4 Mg/Ml Inj IV PUSH 4 mg Q2H PRN Administration Pain Rated 7-10 Ondansetron HCl 4 mg 11/23/23 16:56 11/26/23 10:05 Ondansetron Inj 4 Mg/2 Ml Vial IV
[2023-11-26 16:00] VITALS: TEMP 38.2
[2023-11-26 16:53] LABS: Lactic Acid Reflex 0.8 mmol/L (0.7-2.0)
[2023-11-26 16:54] LABS: Anion Gap 7 mmol/L (8-16); Blood Urea Nitrogen 8 mg/dL (7-17); Carbon Dioxide 18 mmol/L (22-30); Chloride 112 mmol/L (98-107); Estimated CRCL calculation 28 ml/min; Estimated Glomerular Filt Rate 23; Glucose 98 mg/dL (65-110); Potassium 3.9 mmol/L (3.4-5.0); Sodium 137 mmol/L (137-145)
[2023-11-26 17:08] LABS: CRP 13.6 mg/dL (<1.0)
[2023-11-26 17:11] LABS: Procalcitonin 2.7 ng/mL
[2023-11-26] MEDS: SODIUM CHLORIDE 0.9% IV 1,000 ML 999 ML IV CONT ×2 (19:45→21:00)
[2023-11-26 22:00] VITALS: BP 125/81; PULSE 106; RESP 14; TEMP 37.3; O2SAT 100
[2023-11-26 22:53] LABS: Vancomycin Trough 42.9 ug/mL (10.0-20.0)
[2023-11-27] MEDS: ACETAMINOPHEN 500 MG TABLET 1000 MG PO ×4 (00:40→23:52)
[2023-11-27] MEDS: METOCLOPRAMIDE HCL INJ 10 MG/2 ML VIAL 5 MG IV PUSH ×2 (00:40→05:11)
[2023-11-27] MEDS: PIPERACILLIN/TAZ 2.25G/NS 50ML 2.25 GM/50 ML BAG IVPB ×2 (00:41→05:10)
[2023-11-27 00:51] LABS: Anion Gap 5 mmol/L (8-16); Blood Urea Nitrogen 8 mg/dL (7-17); Calcium 6.6 mg/dL (8.4-10.2); Carbon Dioxide 18 mmol/L (22-30); Chloride 115 mmol/L (98-107); Estimated CRCL calculation 25 ml/min; Estimated Glomerular Filt Rate 21; Glucose 118 mg/dL (65-110); Potassium 3.9 mmol/L (3.4-5.0); Sodium 138 mmol/L (137-145)
[2023-11-27 06:15] VITALS: BP 115/78; PULSE 93; RESP 20; TEMP 36.2; O2SAT 98
[2023-11-27 06:22] LABS: Basophils Percent Auto 0.2 % (0.2-1.2); Eosinophils Absolute Auto 0.2 K/mm3 (0-0.3); Eosinophils Percent Auto 1.8 % (0-4.4); Hematocrit 29.2 % (37.0-47.0); Hemoglobin 8.8 g/dL (12.0-15.0); Immature Granulocyte Absolute 0.09 K/mm3 (0.00-0.031); Immature Granulocyte Percent A 0.8 % (0-0.5); Lymphocytes Absolute Auto 1.74 K/mm3 (0.9-3.2); Lymphocytes Percent Auto 16.1 % (18.3-44.2); Mean Corpuscular HGB Conc 30.1 g/dl (32-36); Mean Corpuscular Volume 76.4 fl (80-100); Mean Platelet Volume 10.2 fl (7.4-10.4); Monocytes Absolute Auto 1.2 K/mm3 (0.1-0.6); Monocytes Percent Auto 11.4 % (2.6-8.5); Neutrophils Absolute Auto 7.6 K/mm3 (1.3-6.7); Neutrophils Percent Auto 69.7 % (45.5-73.1); Platelet Count Result 253 k/mm3 (150-375); Red Blood Count 3.82 M/mm3 (4.2-5.4); Red Cell Distribution Width 15.9 % (11.5-14.5); White Blood Count 10.8 K/mm3 (4.5-10.0)
[2023-11-27 06:36] LABS: Alanine Aminotransferase 6 U/L (6-35); Albumin Level 2.4 g/dL (3.5-5.1); Alkaline Phosphatase 90 U/L (38-126); Anion Gap 8 mmol/L (8-16); Aspartate Amino Transferase 20 U/L (14-36); Bilirubin,Total 0.7 mg/dL (0.2-1.3); Blood Urea Nitrogen 8 mg/dL (7-17); Calcium 6.6 mg/dL (8.4-10.2); Carbon Dioxide 17 mmol/L (22-30); Chloride 114 mmol/L (98-107); Estimated CRCL calculation 21 ml/min; Estimated Glomerular Filt Rate 17; Glucose 103 mg/dL (65-110); Potassium 3.8 mmol/L (3.4-5.0); Sodium 139 mmol/L (137-145)
[2023-11-27 06:50] LABS: Anisocytosis 1+ (NORMAL); Hypochromasia 1+ (NORMAL); Ovalocytes 1+ (NORMAL); Platelet Estimate Adequate (Adequate); Schistocytes None Seen (NORMAL)
[2023-11-27 09:00] VITALS: TEMP 36.8
--- NOTE | 2023-11-27 10:26 | PM.CNNEP ---
Assessment and Plan Assessment and plan (1) Acute kidney injury: Code(s): N17.9 - Acute kidney failure, unspecified Status: Acute Assessment and Plan: The patient has acute kidney injury. There are several issues that could be contributing The patient seems to have pyelonephritis. She had symptoms of this. She has pyuria. Unfortunately her urine test was not collected until the and she had already had ceftriaxone on the . So the urine cultures are negative but it is possibly a false negative. She is on broad-spectrum antibiotics. Patient is receiving ketolorac so we will continue this continue this. The patient received contrast on the CT scan on the which may be the main reason her creatinine is rising. Patient also was receiving vancomycin plus Zosyn, the combination which has been associated with renal insufficiency as well. There are other causes of renal insufficiency. Rhabdomyolysis can do this. Will check a CPK. Glomerulonephritis can do this. I think this is less likely in this clinical scenario but still possible so I will check serology. Pulse steroids could be entertained, but because she had the symptoms of the pyelonephritis and the findings on CT scan I would rather not give steroid as this may cause immuno suppression and worsening pyelonephritis. At this point will give IV fluids. Will change antibiotics. Check a CPK, serology, repeat urinalysis and cultures and will check an ultrasound. 25minutes were spent in discussions with Radiology concerning the CT scan and the lab concerning the test and nursing apart from clinical activity. (2) Pyelonephritis: Code(s): N12 - Tubulo-interstitial nephritis, not specified as acute or chronic Status: Acute Assessment and Plan: Patient is getting antibiotics (3) Anemia: Code(s): D64.9 - Anemia, unspecified Status: Acute Assessment and Plan: Hemoglobin is down a little bit consider Epogen if it drops again tomorrow History of Present Illness Reason for Consult Consult date: 11/27/23 Chief Complaint Chief complaint: pyelonephritis History of Present Illness Narrative: Cecy is a very pleasant 28 who has a history of anxiety and depression Patient came into the hospital on the because she had been having flank pain plus odiferous urine. This had been going on for several days. She came to the emergency room on the . She was felt to have UTI so urine culture was ordered and she was given a dose of ceftriaxone. She had a CT scan with contrast which showed pyelonephritis as evidenced by patchy decreases in perfusion throughout both kidneys. Blood and urine cultures were obtained but it does not look like they were collected before she received antibiotics. Both blood and urine were negative. test was negative Over the last few days the creatinine has risen and so renal consultation was obtained The patient has been receiving ketolorac Patient does not have a history of inflammatory disease in her family or in herself. She has no joint pains, skin rash, sores in her mouth, hemoptysis or epistaxis. Review of Systems Constitutional: Constitutional: Reports no additional constitutional complaints Eyes: Eyes: Reports no additional eye complaints ENT: Reports system reviewed and no additional complaints, except as documented Cardiovascular: Cardiovascular: Reports no additional cardiovascular complaints Respiratory: Respiratory: Reports no additional respiratory complaints Gastrointestinal: Gastrointestinal: Reports no additional gastrointestinal complaints Genitourinary: Genitourinary: Reports no additional female genitourinary complaints Musculoskeletal: Musculoskeletal: Reports no additional musculoskeletal complaints Integumentary/Breasts: Skin/Breast: Reports system reviewed and no additional complaints, except as docu Neurologic: Reports system
[2023-11-27 11:01] LABS: Complement C3 106 mg/dL (88-165)
[2023-11-27] MEDS: MORPHINE SULFATE (*CRX) 4 MG/ML INJ IV PUSH ×2 (11:01→20:12)
[2023-11-27] MEDS: ONDANSETRON INJ 4 MG/2 ML VIAL IV PUSH ×2 (11:02→17:45)
[2023-11-27 11:37] LABS: Erythrocyte Sedimentation Rate 56 mm/hr (0-20)
[2023-11-27 12:18] LABS: Creatine Kinase 74 U/L (30-135)
[2023-11-27 14:00] VITALS: BP 119/72; PULSE 94; RESP 12; TEMP 36.4; O2SAT 98
--- NOTE | 2023-11-27 16:51 | PM.IMPN ---
Progress Note: A&P Assessment and Plan (1) Pyelonephritis: Code(s): N12 - Tubulo-interstitial nephritis, not specified as acute or chronic Status: Acute Assessment and Plan: Rocephin initiated 11/23, switched to zosyn 11/24, vanc added 11/25, switched to cefepime + linezolid 11/27 IV fluids, supportive care Follow-up urine culture Appreciate nephrology consult 11/24: Due to worsening leukocytosis and fevers, antibiotics escalated to Zosyn, follow-up culture 11/25: Patient continues to have fevers, vanc added, follow-up cultures 11/26: Fevers improving, leuk trending down, all cultures NGTD, repeat CRP/PCT, suspect viral etiology? unknown source? 11/27: leuk coming down, fevers persist but improving, f/u cx, CRP and PCT trending down Plan DVT prophylaxis with SCDs GI prophylaxis not indicated Code status full code Subjective Date/time seen: 11/27/23 16:51 Interval history: 28-year-old female with no past medical history is presenting with fevers and flank pain and being treated for pyelonephritis with associated sepsis. Afebrile. No overnight events noted. No chest pain or shortness of breath. No nausea, vomiting or diarrhea. Patient states she is feeling much better. Review of Systems Review of Systems: 12 point review of systems was assessed and was negative except as noted in the HPI Exam Narrative: General: No acute distress, alert and oriented per baseline HEENT: Atraumatic, normocephalic, mucous membranes moist CV: Regular rate and rhythm, S1, S2 Lungs: Clear to auscultation bilaterally, no rales or crackles noted, no wheezes, good air entry Abdomen: Soft, nontender, nondistended Extremities: Normal to inspection Skin: No rashes noted, no lesions or wounds seen Psych: Euthymic, normal affect Objective Data Vital Signs Vital Signs: Vital Signs - 24 hr 11/26/23 22:00 11/26/23 20:00 11/27/23 06:15 Temperature 99.1 F 97.2 F L Pulse Rate 106 H 93 Respiratory Rate 14 20 Blood Pressure 125/81 115/78 Pulse Oximetry 100 98 Oxygen Delivery Room Air 11/27/23 09:00 11/27/23 09:00 11/27/23 14:00 Temperature 98.3 F 97.6 F Pulse Rate 94 Respiratory Rate 12 Blood Pressure 119/72 Pulse Oximetry 98 Oxygen Delivery Room Air Intake/Output Intake/Output: Intake & Output 11/24/23 11/25/23 11/26/23 11/27/23 23:59 23:59 23:59 23:59 Intake Total 5732 4318 6050 1150 Output Total 1400 350 Balance 5732 2918 6050 800 Meds/Results Medications: Active Medications Generic Name Dose Route Start Last Admin Trade Name Freq PRN Reason Stop Dose Admin Acetaminophen 650 mg 11/23/23 08:29 11/23/23 21:32 Acetaminophen 325 Mg Tablet PO 650 mg Q4H PRN Administration Mild Pain (1-3) or Fever Acetaminophen 1,000 mg 11/24/23 16:00 11/27/23 08:59 Acetaminophen 500 Mg Tablet PO 1,000 mg Q8H JYOTHI Administration Sodium Chloride 1,000 mls @ 100 mls/hr 11/24/23 15:40 11/27/23 05:09 Normal Saline Iv IV CONT Not Given .Q10H JYOTHI Cefepime HCl 1 gm in 50 mls @ 100 mls/hr 11/27/23 17:00 Maxipime 1 Gm/Ns 50 Ml IVPB 11/27/23 17:29 ONCE ONE Cefepime HCl 0.5 gm/ Dextrose 50 mls @ 100 mls/hr 11/27/23 17:00 IVPB Q24H JYOTHI Linezolid 600 mg in 300 mls @ 300 mls/hr 11/27/23 21:00 Zyvox IVPB Q12HR JYOTHI Morphine Sulfate 4 mg 11/23/23 08:29 11/27/23 11:01 Morphine Sulfate (*Crx) 4 Mg/Ml Inj IV PUSH 4 mg Q2H PRN Administration Pain Rated 7-10 Ondansetron HCl 4 mg 11/23/23 16:56 11/27/23 11:02 Ondansetron Inj 4 Mg/2 Ml Vial IV PUSH 4 mg Q4H PRN Administration Nausea And Vomiting Radiology Results: ITS Impressions Chest X-Ray 11/23/23 07:15 Impression: Normal chest. Abdomen/Pelvis CT 11/26/23 19:26 Impression: [id number] bilateral pleural effusions with bibasilar atelectatic change and probable minimal pulmonary edema. These findings are new
[2023-11-27] MEDS: CEFEPIME 0.5 GM in DEXTROSE 5% IN WATER 50 ML IVPB (17:07)
[2023-11-27] MEDS: CEFEPIME 1 GM/NS 50 ML 1 GM/50 ML BAG IVPB (17:07)
[2023-11-27 17:21] LABS: Appearance Urine Clear (Clear); Bacteria Urine None Seen /hpf; Bilirubin Urine Negative (Negative); Blood Urine 3+ (Negative); Color Urine Yellow (Yellow); Glucose Urine UA Negative (Negative); Ketones Urine Negative (Negative); Leukocyte Esterase Ur 1+ LEU/UL (NEGATIVE); Nitrate Urine Negative (Negative); Non Pathogenic Casts 0-2; Protein Urine 1+ mg/dL (Negative); Specific Grav Ur 1.007 (1.001-1.035); Squamous Epithelial Cell Urine Occasional /hpf (Few); Urobilinogen Urine 0.2 mg/dL (<2.0); pH Urine 5.5 (5.0-9.0)
[2023-11-27 17:23] LABS: Add Urine Microscopic? YES
[2023-11-27 17:25] LABS: Creatinine Urine 44.7 mg/dL; Total Protein Urine Random 55 mg/dL; Ur Ttl Prot Creatinine Ratio 1.23 mg/mg (0-0.20)
[2023-11-27 17:26] LABS: Sodium Urine Random 42 meq/L
[2023-11-27 20:00] VITALS: PULSE 103; RESP 16; O2SAT 100
[2023-11-27] MEDS: LINEZOLID 600 MG/300 ML 600 MG/300 ML SOLN 300 MG IVPB (20:14)
[2023-11-27 20:45] VITALS: BP 126/81; PULSE 103; RESP 16; TEMP 38.1; O2SAT 100
[2023-11-28 00:12] VITALS: TEMP 37.1
[2023-11-28] MEDS: ONDANSETRON INJ 4 MG/2 ML VIAL IV PUSH ×2 (00:24→08:36)
[2023-11-28 05:20] VITALS: BP 131/83; PULSE 98; RESP 15; TEMP 37.2; O2SAT 99
[2023-11-28 06:24] LABS: Basophils Percent Auto 0.3 % (0.2-1.2); Eosinophils Absolute Auto 0.1 K/mm3 (0-0.3); Eosinophils Percent Auto 0.7 % (0-4.4); Hematocrit 31.2 % (37.0-47.0); Hemoglobin 9.3 g/dL (12.0-15.0); Immature Granulocyte Absolute 0.13 K/mm3 (0.00-0.031); Immature Granulocyte Percent A 0.9 % (0-0.5); Lymphocytes Percent Auto 13.1 % (18.3-44.2); Mean Corpuscular HGB Conc 29.8 g/dl (32-36); Mean Corpuscular Volume 77.2 fl (80-100); Mean Platelet Volume 10.2 fl (7.4-10.4); Monocytes Absolute Auto 1.4 K/mm3 (0.1-0.6); Monocytes Percent Auto 10.1 % (2.6-8.5); Neutrophils Absolute Auto 10.3 K/mm3 (1.3-6.7); Neutrophils Percent Auto 74.9 % (45.5-73.1); Platelet Count Result 320 k/mm3 (150-375); Red Blood Count 4.04 M/mm3 (4.2-5.4); Red Cell Distribution Width 16.2 % (11.5-14.5); White Blood Count 13.7 K/mm3 (4.5-10.0)
[2023-11-28 06:39] LABS: Albumin Level 2.6 g/dL (3.5-5.1); Alkaline Phosphatase 77 U/L (38-126); Anion Gap 7 mmol/L (8-16); Aspartate Amino Transferase 16 U/L (14-36); Bilirubin,Total 0.5 mg/dL (0.2-1.3); Blood Urea Nitrogen 13 mg/dL (7-17); Calcium 7.4 mg/dL (8.4-10.2); Carbon Dioxide 18 mmol/L (22-30); Chloride 115 mmol/L (98-107); Estimated CRCL calculation 17 ml/min; Estimated Glomerular Filt Rate 13; Glucose 94 mg/dL (65-110); Phosphorus 3.1 mg/dL (2.5-4.5); Potassium 3.9 mmol/L (3.4-5.0); Sodium 140 mmol/L (137-145)
[2023-11-28 06:42] LABS: Alanine Aminotransferase < 6 U/L (6-35)
[2023-11-28 06:52] LABS: Platelet Estimate Adequate (Adequate)
[2023-11-28 06:53] LABS: Anisocytosis 1+ (NORMAL); Burr Cells 1+ (NORMAL); Hypochromasia 1+ (NORMAL); Ovalocytes 1+ (NORMAL); Schistocytes None Seen (NORMAL)
[2023-11-28] MEDS: LINEZOLID 600 MG/300 ML 600 MG/300 ML SOLN 300 MG IVPB ×2 (08:41→20:29)
--- NOTE | 2023-11-28 09:16 | PM.IMPN ---
Progress Note: A&P Assessment and Plan (1) Pyelonephritis: Code(s): N12 - Tubulo-interstitial nephritis, not specified as acute or chronic Status: Acute Assessment and Plan: Rocephin initiated 11/23, switched to zosyn 11/24, vanc added 11/25, switched to cefepime + linezolid 11/27 IV fluids, supportive care Follow-up urine culture Appreciate nephrology consult 11/24: Due to worsening leukocytosis and fevers, antibiotics escalated to Zosyn, follow-up culture 11/25: Patient continues to have fevers, vanc added, follow-up cultures 11/26: Fevers improving, leuk trending down, all cultures NGTD, repeat CRP/PCT, suspect viral etiology? unknown source? 11/27: leuk coming down, fevers persist but improving, f/u cx, CRP and PCT trending down 11/28: leuk bumped up a bit when switching from vanc+zosyn to linezolid+cefepime, monitor, reassess CRP + PCT and leuk tomorrow (2) Acute kidney injury: Code(s): N17.9 - Acute kidney failure, unspecified Status: Acute Assessment and Plan: etiology likely multifactorial due to pyelopnephritis, vanc + zosyn combination, vanc trough too high, CT with contrast appreciate nephrology consultation continues to worsen Plan DVT prophylaxis with SCDs GI prophylaxis not indicated Code status full code Subjective Date/time seen: 11/28/23 09:16 Interval history: 28-year-old female with no past medical history is presenting with fevers and flank pain and being treated for pyelonephritis with associated sepsis. Tmax 100.5 last night. No other overnight events noted. No chest pain or shortness of breath. No nausea, vomiting or diarrhea. Review of Systems Review of Systems: 12 point review of systems was assessed and was negative except as noted in the HPI Exam Narrative: General: No acute distress, alert and oriented per baseline HEENT: Atraumatic, normocephalic, mucous membranes moist CV: Regular rate and rhythm, S1, S2 Lungs: Clear to auscultation bilaterally, no rales or crackles noted, no wheezes, good air entry Abdomen: Soft, nontender, nondistended Extremities: Normal to inspection Skin: No rashes noted, no lesions or wounds seen Psych: Euthymic, normal affect Objective Data Vital Signs Vital Signs: Vital Signs - 24 hr 11/27/23 14:00 11/27/23 20:45 11/27/23 20:00 Temperature 97.6 F 100.5 F H Pulse Rate 94 103 H 103 H Respiratory Rate 12 16 16 Blood Pressure 119/72 126/81 Pulse Oximetry 98 100 100 Oxygen Delivery Room Air 11/28/23 00:12 11/28/23 05:20 Temperature 98.8 F 99.0 F Pulse Rate 98 Respiratory Rate 15 Blood Pressure 131/83 Pulse Oximetry 99 Oxygen Delivery Intake/Output Intake/Output: Intake & Output 11/25/23 11/26/23 11/27/23 11/28/23 23:59 23:59 23:59 23:59 Intake Total 4318 6050 1670 450 Output Total 1400 750 550 Balance 2918 6050 920 -100 Meds/Results Medications: Active Medications Generic Name Dose Route Start Last Admin Trade Name Freq PRN Reason Stop Dose Admin Acetaminophen 650 mg 11/23/23 08:29 11/23/23 21:32 Acetaminophen 325 Mg Tablet PO 650 mg Q4H PRN Administration Mild Pain (1-3) or Fever Acetaminophen 1,000 mg 11/24/23 16:00 11/28/23 08:47 Acetaminophen 500 Mg Tablet PO Not Given Q8H [facility] Sodium Chloride 1,000 mls @ 100 mls/hr 11/24/23 15:40 11/27/23 05:09 Normal Saline Iv IV CONT Not Given .Q10H JYOTHI Cefepime HCl 0.5 gm/ Dextrose 50 mls @ 100 mls/hr 11/27/23 17:00 11/27/23 17:44 IVPB Infused Q24H JYOTHI Infusion Linezolid 600 mg in 300 mls @ 300 mls/hr 11/27/23 21:00 11/28/23 08:41 Zyvox IVPB 300 mls/hr Q12HR JYOTHI Administration Morphine Sulfate 4 mg 11/23/23 08:29 11/27/23 20:12 Morphine Sulfate (*Crx) 4 Mg/Ml Inj IV PUSH 4 mg Q2H PRN Administration Pain Rated 7-10 Ondansetron HCl 4 mg 11/23/23 16:56 11/28/23 08:36 Ondansetron Inj 4 Mg/2 Ml Vial IV PUSH 4 mg Q4H PRN A
--- NOTE | 2023-11-28 10:50 | PM.PNNEP ---
Progress Note: A&P Assessment and Plan (1) Acute kidney injury: Code(s): N17.9 - Acute kidney failure, unspecified Status: Acute Assessment and Plan: creatinine on admission was normal decline in renal function started/noted on 11/26 by AM labs possible etiologies: possible UTI/pyelonephritis NSAID use contrast exposure (CT scan on 11/23) antibiotics (was on vancomycin + Zosyn - this combination has been associated with renal insufficiency) evaluation to date: renal ultrasound with medical renal disease CPK normal urine electrolytes non-prenal UA suggestive of infection (but urine culture negative) no peripheral eosinophilia; urine eosinophils pending serology pending despite worsening creatinine, making reasonable urine follow repeat labs and UOP (2) Pyelonephritis: Code(s): N12 - Tubulo-interstitial nephritis, not specified as acute or chronic Status: Acute Assessment and Plan: admission UA and CT scan suggestive on antibiotics follow culture data (3) Anemia: Code(s): D64.9 - Anemia, unspecified Status: Acute Assessment and Plan: H/H low but stable suspect secondary to NAYELY and acute illness follow trend consider Epogen if declines further Will continue to follow. Subjective Date/time seen: 11/28/23 10:50 Interval history: Follow-up for acute kidney injury/acute renal failure. Chart reviewed -- assuming care from Dr. Samson; renal function worse today as noted by AM labs but still making reasonable urine output; at the time of my visit, she was quite nauseated as well; no acute issues/events overnight or earlier today. Exam Narrative: General: WD/WN female in NAD Heart: normal S1 and S2; no rub Lungs: clear to auscultation Abdomen: soft, nontender, nondistended, positive bowel sounds Extremities: no cyanosis or clubbing; no edema Skin: warm and dry Objective Data Vital Signs Vital Signs: Vital Signs Temp Pulse Resp BP Pulse Ox O2 Del Method 11/28/23 05:20 99.0 F 98 15 131/83 99 11/28/23 00:12 98.8 F 11/27/23 20:00 103 H 16 100 Room Air 11/27/23 20:45 100.5 F H 103 H 16 126/81 100 11/27/23 14:00 97.6 F 94 12 119/72 98 Intake/Output Intake/Output: Intake & Output 11/25/23 11/26/23 11/27/23 11/28/23 23:59 23:59 23:59 23:59 Intake Total 4318 6050 1670 750 Output Total 1400 750 550 Balance 2918 6050 920 200 Meds/Results Medications: Active Medications Generic Name Dose Route Start Last Admin Trade Name Freq PRN Reason Stop Dose Admin Acetaminophen 650 mg 11/23/23 08:29 11/23/23 21:32 Acetaminophen 325 Mg Tablet PO 650 mg Q4H PRN Administration Mild Pain (1-3) or Fever Acetaminophen 1,000 mg 11/24/23 16:00 11/28/23 08:47 Acetaminophen 500 Mg Tablet PO Not Given Q8H JYOTHI Diphenhydramine HCl 25 mg 11/28/23 10:34 Diphenhydramine Hcl Inj 50 Mg/Ml Vial IV PUSH Q4H PRN Itching Sodium Chloride 1,000 mls @ 100 mls/hr 11/24/23 15:40 11/27/23 05:09 Normal Saline Iv IV CONT Not Given .Q10H JYOTHI Cefepime HCl 0.5 gm/ Dextrose 50 mls @ 100 mls/hr 11/27/23 17:00 11/27/23 17:44 IVPB Infused Q24H JYOTHI Infusion Linezolid 600 mg in 300 mls @ 300 mls/hr 11/27/23 21:00 11/28/23 09:41 Zyvox IVPB Infused Q12HR JYOTHI Infusion Lorazepam 1 mg 11/28/23 11:57 11/28/23 12:16 Lorazepam Inj (*Crx) 2 Mg/Ml Vial IV PUSH 1 mg Q6H PRN Administration Anxiety Morphine Sulfate 4 mg 11/23/23 08:29 11/27/23 20:12 Morphine Sulfate (*Crx) 4 Mg/Ml Inj IV PUSH 4 mg Q2H PRN Administration Pain Rated 7-10 Promethazine HCl 12.5 mg 11/28/23 09:17 11/28/23 12:16 Promethazine Hcl 25 Mg/Ml Ampul IV PUSH 12.5 mg Q4H PRN Administration Nausea And Vomiting Radiology Results: ITS Impressions Chest X-Ray 11/23/23 07:15 Impression: Normal chest
--- NOTE | 2023-11-28 10:50 | P.PNNP_ITS ---
Progress Note: A&P Assessment and Plan (1) Acute kidney injury: Code(s): N17.9 - Acute kidney failure, unspecified Status: Acute Assessment and Plan: * creatinine on admission was normal * decline in renal function started/noted on 11/26 by AM labs * possible etiologies: * possible UTI/pyelonephritis * NSAID use * contrast exposure (CT scan on 11/23) * antibiotics (was on vancomycin + Zosyn - this combination has been associated with renal insufficiency) * evaluation to date: * renal ultrasound with medical renal disease * CPK normal * urine electrolytes non-prenal * UA suggestive of infection (but urine culture negative) * no peripheral eosinophilia; urine eosinophils pending * serology pending * despite worsening creatinine, making reasonable urine * follow repeat labs and UOP (2) Pyelonephritis: Code(s): N12 - Tubulo-interstitial nephritis, not specified as acute or chronic Status: Acute Assessment and Plan: * admission UA and CT scan suggestive * on antibiotics * follow culture data (3) Anemia: Code(s): D64.9 - Anemia, unspecified Status: Acute Assessment and Plan: * H/H low but stable * suspect secondary to NAYELY and acute illness * follow trend * consider Epogen if declines further Will continue to follow. Subjective Date/time seen: 11/28/23 10:50 Interval history: Follow-up for acute kidney injury/acute renal failure. Chart reviewed -- assuming care from Dr. Samson; renal function worse today as noted by AM labs but still making reasonable urine output; at the time of my visit, she was quite nauseated as well; no acute issues/events overnight or earlier today. Exam Narrative: General: WD/WN female in NAD Heart: normal S1 and S2; no rub Lungs: clear to auscultation Abdomen: soft, nontender, nondistended, positive bowel sounds Extremities: no cyanosis or clubbing; no edema Skin: warm and dry Objective Data Vital Signs Vital Signs: Vital Signs Temp Pulse Resp BP Pulse Ox O2 Del Method 11/28/23 05:20 99.0 F 98 15 131/83 99 11/28/23 00:12 98.8 F 11/27/23 20:00 103 H 16 100 Room Air 11/27/23 20:45 100.5 F H 103 H 16 126/81 100 11/27/23 14:00 97.6 F 94 12 119/72 98 Intake/Output Intake/Output: Intake & Output 11/25/23 11/26/23 11/27/23 11/28/23 23:59 23:59 23:59 23:59 Intake Total 4318 6050 1670 750 Output Total 1400 750 550 Balance 2918 6050 920 200 Meds/Results Medications: Active Medications Generic Name Dose Route Start Last Admin Trade Name Freq PRN Reason Stop Dose Admin Acetaminophen 650 mg 11/23/23 08:29 11/23/23 21:32 Acetaminophen 325 Mg Tablet PO 650 mg Q4H PRN Administration Mild Pain (1-3) or Fever Acetaminophen 1,000 mg 11/24/23 16:00 11/28/23 08:47 Acetaminophen 500 Mg Tablet PO Not Given Q8H JYOTHI Diphenhydramine HCl 25 mg 11/28/23 10:34 Diphenhydramine Hcl Inj 50 Mg/Ml Vial IV PUSH Q4H PRN Itching Sodium Chloride 1,000 mls @ 100 mls/hr 11/24/23 15:40 11/27/23 05:09 Normal Saline Iv
[2023-11-28] MEDS: PROMETHAZINE HCL 25 MG/ML AMPUL 12.5 MG IV PUSH (12:16)
[2023-11-28] MEDS: LORazepam INJ (*CRX) 2 MG/ML VIAL 1 MG IV PUSH (12:16)
[2023-11-28 13:52] VITALS: BP 134/78; PULSE 80; RESP 16; TEMP 36.6; O2SAT 100
[2023-11-28] MEDS: CEFEPIME 0.5 GM in DEXTROSE 5% IN WATER 50 ML IVPB (17:50)
[2023-11-28] MEDS: PANTOPRAZOLE SODIUM IV 40 MG VIAL IV PUSH (17:54)
[2023-11-28 21:37] VITALS: BP 106/66; PULSE 116; RESP 16; TEMP 36.8; O2SAT 100
[2023-11-28] MEDS: ACETAMINOPHEN 500 MG TABLET 1000 MG PO (23:23)
[2023-11-29 05:39] VITALS: BP 143/96; PULSE 95; RESP 16; TEMP 36.5; O2SAT 98
[2023-11-29 07:21] LABS: Basophils Percent Auto 0.3 % (0.2-1.2); Eosinophils Absolute Auto 0.2 K/mm3 (0-0.3); Eosinophils Percent Auto 1.3 % (0-4.4); Hematocrit 30.8 % (37.0-47.0); Hemoglobin 9.2 g/dL (12.0-15.0); Immature Granulocyte Absolute 0.22 K/mm3 (0.00-0.031); Immature Granulocyte Percent A 1.6 % (0-0.5); Lymphocytes Absolute Auto 1.92 K/mm3 (0.9-3.2); Lymphocytes Percent Auto 13.8 % (18.3-44.2); Mean Corpuscular HGB Conc 29.9 g/dl (32-36); Mean Corpuscular Hemoglobin 22.9 pg (26-34); Mean Corpuscular Volume 76.6 fl (80-100); Mean Platelet Volume 10.1 fl (7.4-10.4); Monocytes Absolute Auto 1.6 K/mm3 (0.1-0.6); Monocytes Percent Auto 11.1 % (2.6-8.5); Neutrophils Percent Auto 71.9 % (45.5-73.1); Platelet Count Result 405 k/mm3 (150-375); Red Blood Count 4.02 M/mm3 (4.2-5.4); Red Cell Distribution Width 16.3 % (11.5-14.5); White Blood Count 13.9 K/mm3 (4.5-10.0)
[2023-11-29 07:32] LABS: Alanine Aminotransferase 6 U/L (6-35); Albumin Level 2.5 g/dL (3.5-5.1); Alkaline Phosphatase 75 U/L (38-126); Anion Gap 9 mmol/L (8-16); Aspartate Amino Transferase 18 U/L (14-36); Bilirubin,Total 0.4 mg/dL (0.2-1.3); Blood Urea Nitrogen 14 mg/dL (7-17); Calcium 7.5 mg/dL (8.4-10.2); Carbon Dioxide 18 mmol/L (22-30); Chloride 115 mmol/L (98-107); Estimated CRCL calculation 15 ml/min; Estimated Glomerular Filt Rate 11; Glucose 85 mg/dL (65-110); Potassium 3.5 mmol/L (3.4-5.0); Sodium 142 mmol/L (137-145)
[2023-11-29 07:52] LABS: Platelet Estimate Increased (Adequate)
[2023-11-29 07:53] LABS: Crenated RBC 2+ (NORMAL); Schistocytes None Seen (NORMAL)
[2023-11-29] MEDS: PANTOPRAZOLE SODIUM IV 40 MG VIAL IV PUSH (08:48)
[2023-11-29] MEDS: ACETAMINOPHEN 500 MG TABLET 1000 MG PO ×2 (08:50→18:40)
[2023-11-29] MEDS: LINEZOLID 600 MG/300 ML 600 MG/300 ML SOLN 300 MG IVPB (09:00)
--- NOTE | 2023-11-29 09:01 | P.PNNP_ITS ---
Progress Note: A&P Assessment and Plan (1) Acute kidney injury: Code(s): N17.9 - Acute kidney failure, unspecified Status: Acute Assessment and Plan: * creatinine on admission was normal * decline in renal function started/noted on 11/26 by AM labs * possible etiologies: * possible UTI/pyelonephritis * NSAID use * contrast exposure (CT scan on 11/23) * antibiotics (was on vancomycin + Zosyn - this combination has been associated with renal insufficiency) * evaluation to date: * renal ultrasound with medical renal disease * CPK normal * urine electrolytes non-prenal * UA suggestive of infection (but urine culture negative) * no peripheral eosinophilia; urine eosinophils pending * serology pending * despite worsening creatinine, making reasonable urine * possible peak/plateau soon -- rate of rise in creatinine seems to be slowing... * follow repeat labs and UOP (2) Pyelonephritis: Code(s): N12 - Tubulo-interstitial nephritis, not specified as acute or chronic Status: Acute Assessment and Plan: * admission UA and CT scan suggestive * on antibiotics * follow culture data (3) Anemia: Code(s): D64.9 - Anemia, unspecified Status: Acute Assessment and Plan: * H/H low but stable * suspect secondary to NAYELY and acute illness * follow trend * consider Epogen if declines further Will continue to follow. Subjective Date/time seen: 11/29/23 10:51 Interval history: Follow-up for acute kidney injury/acute renal failure. Still making good urine output with IVFs but renal function continues to deteriorate; no critical electrolytes noted; nausea doing better with IV antiemetics; no apparent distress voiced otherwise. Exam Narrative: General: WD/WN female in NAD Heart: normal S1 and S2; no rub Lungs: clear to auscultation Abdomen: soft, nontender, nondistended, positive bowel sounds Extremities: no cyanosis or clubbing; no edema Skin: warm and intact Objective Data Vital Signs Vital Signs: Vital Signs Temp Pulse Resp BP Pulse Ox O2 Del Method 11/29/23 08:32 98.4 F 88 20 132/79 100 11/29/23 05:39 97.7 F 95 16 143/96 H 98 11/28/23 21:37 98.3 F 116 H 16 106/66 100 11/28/23 13:52 97.9 F 80 16 134/78 100 Intake/Output Intake/Output: Intake & Output 11/26/23 11/27/23 11/28/23 11/29/23 23:59 23:59 23:59 23:59 Intake Total 6050 1670 1220 420 Output Total 750 1350 1000 Balance 6050 451 -967 -778 Meds/Results Medications: Active Medications Generic Name Dose Route Start Last Admin Trade Name Freq PRN Reason Stop Dose Admin Acetaminophen 650 mg 11/23/23 08:29 11/23/23 21:32 Acetaminophen 325 Mg Tablet PO 650 mg Q4H PRN Administration Mild Pain (1-3) or Fever Acetaminophen 1,000 mg 11/24/23 16:00 11/29/23 08:50 Acetaminophen 500 Mg Tablet PO 1,000 mg Q8H JYOTHI Administration Diphenhydramine HCl 25 mg 11/28/23 10:34 Diphenhydramine Hcl Inj 50 Mg/Ml Vial IV PUSH Q4H PRN Itching Sodium Chloride 1,000 mls @ 100 mls/hr 11/24/23 15:40 11/27/23 05:09
--- NOTE | 2023-11-29 09:01 | PM.PNNEP ---
Progress Note: A&P Assessment and Plan (1) Acute kidney injury: Code(s): N17.9 - Acute kidney failure, unspecified Status: Acute Assessment and Plan: creatinine on admission was normal decline in renal function started/noted on 11/26 by AM labs possible etiologies: possible UTI/pyelonephritis NSAID use contrast exposure (CT scan on 11/23) antibiotics (was on vancomycin + Zosyn - this combination has been associated with renal insufficiency) evaluation to date: renal ultrasound with medical renal disease CPK normal urine electrolytes non-prenal UA suggestive of infection (but urine culture negative) no peripheral eosinophilia; urine eosinophils pending serology pending despite worsening creatinine, making reasonable urine possible peak/plateau soon -- rate of rise in creatinine seems to be slowing... follow repeat labs and UOP (2) Pyelonephritis: Code(s): N12 - Tubulo-interstitial nephritis, not specified as acute or chronic Status: Acute Assessment and Plan: admission UA and CT scan suggestive on antibiotics follow culture data (3) Anemia: Code(s): D64.9 - Anemia, unspecified Status: Acute Assessment and Plan: H/H low but stable suspect secondary to NAYELY and acute illness follow trend consider Epogen if declines further Will continue to follow. Subjective Date/time seen: 11/29/23 10:51 Interval history: Follow-up for acute kidney injury/acute renal failure. Still making good urine output with IVFs but renal function continues to deteriorate; no critical electrolytes noted; nausea doing better with IV antiemetics; no apparent distress voiced otherwise. Exam Narrative: General: WD/WN female in NAD Heart: normal S1 and S2; no rub Lungs: clear to auscultation Abdomen: soft, nontender, nondistended, positive bowel sounds Extremities: no cyanosis or clubbing; no edema Skin: warm and intact Objective Data Vital Signs Vital Signs: Vital Signs Temp Pulse Resp BP Pulse Ox O2 Del Method 11/29/23 08:32 98.4 F 88 20 132/79 100 11/29/23 05:39 97.7 F 95 16 143/96 H 98 11/28/23 21:37 98.3 F 116 H 16 106/66 100 11/28/23 13:52 97.9 F 80 16 134/78 100 Intake/Output Intake/Output: Intake & Output 01/13/24 11/27/23 11/28/23 11/29/23 23:59 23:59 23:59 23:59 Intake Total 6050 1670 1220 420 Output Total 750 1350 1000 Balance 6050 359 -185 -375 Meds/Results Medications: Active Medications Generic Name Dose Route Start Last Admin Trade Name Freq PRN Reason Stop Dose Admin Acetaminophen 650 mg 11/23/23 08:29 11/23/23 21:32 Acetaminophen 325 Mg Tablet PO 650 mg Q4H PRN Administration Mild Pain (1-3) or Fever Acetaminophen 1,000 mg 11/24/23 16:00 11/29/23 08:50 Acetaminophen 500 Mg Tablet PO 1,000 mg Q8H JYOTHI Administration Diphenhydramine HCl 25 mg 11/28/23 10:34 Diphenhydramine Hcl Inj 50 Mg/Ml Vial IV PUSH Q4H PRN Itching Sodium Chloride 1,000 mls @ 100 mls/hr 11/24/23 15:40 11/27/23 05:09 Normal Saline Iv IV CONT Not Given .Q10H JYOTHI Cefepime HCl 0.5 gm/ Dextrose 50 mls @ 100 mls/hr 11/27/23 17:00 11/28/23 18:20 IVPB Infused Q24H JYOTHI Infusion Linezolid 600 mg in 300 mls @ 300 mls/hr 11/27/23 21:00 11/29/23 09:00 Zyvox IVPB 300 mls/hr Q12HR JYOTHI Administration Lorazepam 0.5 mg 11/28/23 18:30 Lorazepam Inj (*Crx) 2 Mg/Ml Vial IV PUSH Q6H PRN Anxiety Morphine Sulfate 4 mg 11/23/23 08:29 11/27/23 20:12 Morphine Sulfate (*Crx) 4 Mg/Ml Inj IV PUSH 4 mg Q2H PRN Administration Pain Rated 7-10 Pantoprazole Sodium 40 mg 11/28/23 14:05 11/29/23 08:48 Pantoprazole Sodium Iv 40 Mg Vial IV PUSH 40 mg QAM JYOTHI Administration Promethazine HCl 12.5 mg 11/28/23 09:17 11/29/23 09:54 Promethazine Hcl 25 Mg/Ml Ampul IV PUSH 12.5 mg Q4H PRN
[2023-11-29 09:32] VITALS: BP 132/79; PULSE 88; RESP 20; TEMP 36.9; O2SAT 100
[2023-11-29] MEDS: PROMETHAZINE HCL 25 MG/ML AMPUL 12.5 MG IV PUSH ×2 (09:54→15:36)
--- NOTE | 2023-11-29 11:08 | PC.NURSE ---
On 11/29/23, the student, Emily Prado, provided care and completed [facility] documentation on this patient. I have reviewed the student's documentation and agree with the findings.
[2023-11-29 12:25] LABS: Eosinophil Urine None Seen % (None Seen); Urine Eos QC 2nd Tech Confirmed
[2023-11-29] MEDS: SODIUM CHLORIDE 0.9% IV 1,000 ML 75 ML IV CONT (13:25)
[2023-11-29 14:00] VITALS: BP 139/75; PULSE 92; RESP 18; TEMP 36.8; O2SAT 100
--- NOTE | 2023-11-29 15:05 | PM.IMPN ---
Progress Note: A&P Assessment and Plan (1) Pyelonephritis: Code(s): N12 - Tubulo-interstitial nephritis, not specified as acute or chronic Status: Acute Assessment and Plan: Rocephin initiated 11/23, switched to zosyn 11/24, vanc added 11/25, switched to cefepime + linezolid 11/27 IV fluids, supportive care Follow-up urine culture Appreciate nephrology consult 11/24: Due to worsening leukocytosis and fevers, antibiotics escalated to Zosyn, follow-up culture 11/25: Patient continues to have fevers, vanc added, follow-up cultures 11/26: Fevers improving, leuk trending down, all cultures NGTD, repeat CRP/PCT, suspect viral etiology? unknown source? 11/27: leuk coming down, fevers persist but improving, f/u cx, CRP and PCT trending down 11/28: leuk bumped up a bit when switching from vanc+zosyn to linezolid+cefepime, monitor, reassess CRP + PCT and leuk tomorrow 11/29: leuk unchanged, d/c linezolid, cont cefepime, cultures NGTD (2) Acute kidney injury: Code(s): N17.9 - Acute kidney failure, unspecified Status: Acute Assessment and Plan: etiology likely multifactorial due to pyelopnephritis, vanc + zosyn combination, vanc trough too high, CT with contrast appreciate nephrology consultation continues to worsen, slowing, monitor Plan DVT prophylaxis with SCDs GI prophylaxis not indicated Code status full code Subjective Date/time seen: 11/29/23 15:05 Interval history: 28-year-old female with no past medical history is presenting with fevers and flank pain and being treated for pyelonephritis with associated sepsis. Afebrile. No other overnight events noted. No chest pain or shortness of breath. No nausea, vomiting or diarrhea. Review of Systems Review of Systems: 12 point review of systems was assessed and was negative except as noted in the HPI Exam Narrative: General: No acute distress, alert and oriented per baseline HEENT: Atraumatic, normocephalic, mucous membranes moist CV: Regular rate and rhythm, S1, S2 Lungs: Clear to auscultation bilaterally, no rales or crackles noted, no wheezes, good air entry Abdomen: Soft, nontender, nondistended Extremities: Normal to inspection Skin: No rashes noted, no lesions or wounds seen Psych: Euthymic, normal affect Objective Data Vital Signs Vital Signs: Vital Signs - 24 hr 11/28/23 21:37 11/29/23 05:39 11/29/23 09:32 Temperature 98.3 F 97.7 F 98.4 F Pulse Rate 116 H 95 88 Respiratory Rate 16 16 20 Blood Pressure 106/66 143/96 H 132/79 Pulse Oximetry 100 98 100 Oxygen Delivery 11/29/23 09:10 11/29/23 10:23 Temperature Pulse Rate Respiratory Rate Blood Pressure Pulse Oximetry Oxygen Delivery Room Air Room Air Intake/Output Intake/Output: Intake & Output 11/26/23 11/27/23 11/28/23 11/29/23 23:59 23:59 23:59 23:59 Intake Total 6050 1670 1220 720 Output Total 750 1350 1500 Balance 6050 920 130 -780 Meds/Results Medications: Active Medications Generic Name Dose Route Start Last Admin Trade Name Freq PRN Reason Stop Dose Admin Acetaminophen 650 mg 11/23/23 08:29 11/23/23 21:32 Acetaminophen 325 Mg Tablet PO 650 mg Q4H PRN Administration Mild Pain (1-3) or Fever Acetaminophen 1,000 mg 11/24/23 16:00 11/29/23 08:50 Acetaminophen 500 Mg Tablet PO 1,000 mg Q8H JYOTHI Administration Diphenhydramine HCl 25 mg 11/28/23 10:34 Diphenhydramine Hcl Inj 50 Mg/Ml Vial IV PUSH Q4H PRN Itching Sodium Chloride 1,000 mls @ 75 mls/hr 11/24/23 15:40 11/29/23 13:25 Normal Saline Iv IV CONT 75 mls/hr .[id number] JYOTHI Administration Cefepime HCl 0.5 gm/ Dextrose 50 mls @ 100 mls/hr 11/27/23 17:00 11/28/23 18:20 IVPB Infused Q24H JYOTHI Infusion Lorazepam 0.5 mg 11/28/23 18:30 Lorazepam Inj (*Crx) 2 Mg/Ml Vial IV PUSH Q6H PRN Anxiety Morphine Sulfate 4 mg 11/23/23 08:29 11/27/23 20:12 Morphine Sulfate (*Crx)
[2023-11-29] MEDS: CEFEPIME 0.5 GM in DEXTROSE 5% IN WATER 50 ML IVPB (16:26)
--- NOTE | 2023-11-29 19:28 | PM.IMPN ---
Progress Note: A&P Assessment and Plan (1) Pyelonephritis: Code(s): N12 - Tubulo-interstitial nephritis, not specified as acute or chronic Status: Acute Assessment and Plan: Rocephin initiated 11/23, switched to zosyn 11/24, vanc added 11/25, switched to cefepime + linezolid 11/27 IV fluids, supportive care Follow-up urine culture Appreciate nephrology consult 11/29: leuk unchanged, d/c linezolid, cont cefepime, cultures NGTD (2) Acute kidney injury: Code(s): N17.9 - Acute kidney failure, unspecified Status: Acute Assessment and Plan: etiology likely multifactorial due to pyelopnephritis, vanc + zosyn combination, vanc trough too high, CT with contrast appreciate nephrology consultation continues to worsen, slowing, monitor Plan DVT prophylaxis with SCDs GI prophylaxis not indicated Code status full code Subjective Date/time seen: 11/29/23 19:28 Interval history: 28-year-old female with no past medical history is presenting with fevers and flank pain and being treated for pyelonephritis with associated sepsis. Afebrile. No other overnight events noted. No chest pain or shortness of breath. No nausea, vomiting or diarrhea. Feels better than yesterday, quite anxious about her kidney function. Review of Systems Review of Systems: 12 point review of systems was assessed and was negative except as noted in the HPI Exam Narrative: General: No acute distress, alert and oriented per baseline HEENT: Atraumatic, normocephalic, mucous membranes moist CV: Regular rate and rhythm, S1, S2 Lungs: Clear to auscultation bilaterally, no rales or crackles noted, no wheezes, good air entry Abdomen: Soft, nontender, nondistended Extremities: Normal to inspection Skin: No rashes noted, no lesions or wounds seen Psych: Euthymic, normal affect Objective Data Vital Signs Vital Signs: Vital Signs - 24 hr 11/28/23 21:37 11/29/23 05:39 11/29/23 09:32 Temperature 98.3 F 97.7 F 98.4 F Pulse Rate 116 H 95 88 Respiratory Rate 16 16 20 Blood Pressure 106/66 143/96 H 132/79 Pulse Oximetry 100 98 100 Oxygen Delivery 11/29/23 09:10 11/29/23 10:23 11/29/23 14:00 Temperature 98.3 F Pulse Rate 92 Respiratory Rate 18 Blood Pressure 139/75 Pulse Oximetry 100 Oxygen Delivery Room Air Room Air Intake/Output Intake/Output: Intake & Output 11/26/23 11/27/23 11/28/23 11/29/23 23:59 23:59 23:59 23:59 Intake Total 6050 1670 1220 1200 Output Total 750 1350 1800 Balance 6050 920 -130 -600 Meds/Results Medications: Active Medications Generic Name Dose Route Start Last Admin Trade Name Freq PRN Reason Stop Dose Admin Acetaminophen 650 mg 11/23/23 08:29 11/23/23 21:32 Acetaminophen 325 Mg Tablet PO 650 mg Q4H PRN Administration Mild Pain (1-3) or Fever Acetaminophen 1,000 mg 11/24/23 16:00 11/29/23 18:40 Acetaminophen 500 Mg Tablet PO 1,000 mg Q8H JYOTHI Administration Diphenhydramine HCl 25 mg 11/28/23 10:34 Diphenhydramine Hcl Inj 50 Mg/Ml Vial IV PUSH Q4H PRN Itching Sodium Chloride 1,000 mls @ 75 mls/hr 11/24/23 15:40 11/29/23 13:25 Normal Saline Iv IV CONT 75 mls/hr .[id number] JYOTHI Administration Cefepime HCl 0.5 gm/ Dextrose 50 mls @ 100 mls/hr 11/27/23 17:00 11/29/23 16:26 IVPB 100 mls/hr Q24H JYOTHI Administration Lorazepam 0.5 mg 11/28/23 18:30 Lorazepam Inj (*Crx) 2 Mg/Ml Vial IV PUSH Q6H PRN Anxiety Morphine Sulfate 4 mg 11/23/23 08:29 11/27/23 20:12 Morphine Sulfate (*Crx) 4 Mg/Ml Inj IV PUSH 4 mg Q2H PRN Administration Pain Rated 7-10 Pantoprazole Sodium 40 mg 11/28/23 14:05 11/29/23 08:48 Pantoprazole Sodium Iv 40 Mg Vial IV PUSH 40 mg QAM JYOTHI Administration Promethazine HCl 12.5 mg 11/28/23 09:17 11/29/23 15:36 Promethazine Hcl 25 Mg/Ml Ampul IV PUSH 12.5 mg Q4H PRN Administration Nausea And Vomiting
[2023-11-29 22:00] VITALS: BP 129/86; PULSE 73; RESP 18; TEMP 36.7; O2SAT 100
[2023-11-29 23:59] LABS: Kappa\\Lambda Light Chains 1.59 (0.26-1.65); Lambda Light Chain 31.6 mg/L (5.7-26.3)
[2023-11-30] MEDS: SODIUM CHLORIDE 0.9% IV 1,000 ML 75 ML IV CONT ×2 (02:50→16:25)
[2023-11-30] MEDS: MORPHINE SULFATE (*CRX) 4 MG/ML INJ IV PUSH ×2 (02:51→13:44)
[2023-11-30 06:00] VITALS: BP 118/90; PULSE 76; RESP 24; TEMP 37.1; O2SAT 94
[2023-11-30 06:31] LABS: Basophils Percent Auto 0.4 % (0.2-1.2); Eosinophils Absolute Auto 0.3 K/mm3 (0-0.3); Eosinophils Percent Auto 2.5 % (0-4.4); Hematocrit 29.8 % (37.0-47.0); Hemoglobin 8.9 g/dL (12.0-15.0); Immature Granulocyte Absolute 0.16 K/mm3 (0.00-0.031); Immature Granulocyte Percent A 1.5 % (0-0.5); Lymphocytes Absolute Auto 1.81 K/mm3 (0.9-3.2); Mean Corpuscular HGB Conc 29.9 g/dl (32-36); Mean Corpuscular Hemoglobin 22.9 pg (26-34); Mean Corpuscular Volume 76.6 fl (80-100); Mean Platelet Volume 9.9 fl (7.4-10.4); Monocytes Absolute Auto 1.3 K/mm3 (0.1-0.6); Monocytes Percent Auto 11.8 % (2.6-8.5); Neutrophils Absolute Auto 7.1 K/mm3 (1.3-6.7); Neutrophils Percent Auto 66.8 % (45.5-73.1); Platelet Count Result 459 k/mm3 (150-375); Red Blood Count 3.89 M/mm3 (4.2-5.4); Red Cell Distribution Width 16.4 % (11.5-14.5); White Blood Count 10.7 K/mm3 (4.5-10.0)
[2023-11-30 06:41] LABS: Potassium 3.5 mmol/L (3.4-5.0)
[2023-11-30 06:56] LABS: Albumin Level 2.7 g/dL (3.5-5.1); Alkaline Phosphatase 67 U/L (38-126); Anion Gap 9 mmol/L (8-16); Aspartate Amino Transferase 16 U/L (14-36); Bilirubin,Total 0.4 mg/dL (0.2-1.3); Blood Urea Nitrogen 16 mg/dL (7-17); Calcium 7.5 mg/dL (8.4-10.2); Carbon Dioxide 19 mmol/L (22-30); Chloride 115 mmol/L (98-107); Estimated CRCL calculation 15 ml/min; Estimated Glomerular Filt Rate 11; Glucose 85 mg/dL (65-110); Sodium 143 mmol/L (137-145)
[2023-11-30 07:39] LABS: Alanine Aminotransferase < 6 U/L (6-35)
[2023-11-30 08:14] LABS: Hypochromasia 1+ (NORMAL); Platelet Estimate Adequate (Adequate); Schistocytes None Seen (NORMAL)
[2023-11-30] MEDS: ACETAMINOPHEN 500 MG TABLET 1000 MG PO ×2 (08:50→16:25)
[2023-11-30] MEDS: PANTOPRAZOLE SODIUM IV 40 MG VIAL IV PUSH (08:50)
--- NOTE | 2023-11-30 09:51 | PM.IMPN ---
Progress Note: A&P Assessment and Plan (1) Pyelonephritis: Code(s): N12 - Tubulo-interstitial nephritis, not specified as acute or chronic Status: Acute Assessment and Plan: Rocephin initiated 11/23, switched to zosyn 11/24, vanc added 11/25, switched to cefepime + linezolid 11/27 BCx 11/24 negative. BCx 11/27 NGTD UCx 11/24 and 11/27 negative. MRSA nasal swab 11/25 negative. WBC 16K and has trended down to 10.7K now Linezolid stopped 11/29. Cultures negative but collected after starting abx. Continue cefepime to complete a course Appreciate nephrology consult (2) Acute kidney injury: Code(s): N17.9 - Acute kidney failure, unspecified Status: Acute Assessment and Plan: Etiology likely multifactorial due to pyelonephritis, vanc + zosyn combination, vanc trough too high, CT with contrast. Autoimmune? Cr normal on admission. Metabolic acidosis noted. DS DNA positive. Complement normal. Ueos negative. TCK normal. Cr 5.7 and about the same as yesterday so may be leveling off. UOP 1800+ yesterday Appreciate nephrology consultation Continue to monitor UOP, renal function and electrolytes Add Bicarb. (3) Anemia: Code(s): D64.9 - Anemia, unspecified Status: Acute Assessment and Plan: Acute on chronic anemia. Hgb 11 at baseline. Cr 11.6 but dropped to 8-9 range and stable now. Microcytic. Monitor, check iron studies. Plan DVT prophylaxis with SCDs GI prophylaxis not indicated Code status full code Subjective Date/time seen: 11/30/23 09:51 Interval history: 28-year-old female with no past medical history is presenting with fevers and flank pain and being treated for pyelonephritis with associated sepsis and now NAYELY. Assuming care. Chart reviewed. She feels weak and having trouble walking sustained distances. She walked to the nurse's station but had to return in a wheelchair b/c too weak to return to bed under her own power. She is having nausea and vomiting but was able tolerate oral intake this morning. Slept okay last night. No risk factors for HIV or hepatitis. For family history on immune disorders. She complains of knee and back pain. No history of sickle cell disease or trait. She believes her brother has sickle cell trait. Exam Narrative: AF 98.8 118/90 76 24 94% ra Gen - NARD Chest - CTA bilaterally, nml RR CV - RRR S1/S2 Abd - Soft, NT/ND, Positive BS Back - no CVA tenderness but with paraspinal tenderness mid-thoracic area. Ext - No pedal edema Psych - Nml mood and affect Skin - Warm and dry Objective Data Vital Signs Vital Signs: Vital Signs - 24 hr 11/29/23 10:23 11/29/23 14:00 11/29/23 22:00 Temperature 98.3 F 98.1 F Pulse Rate 92 73 Respiratory Rate 18 18 Blood Pressure 139/75 129/86 Pulse Oximetry 100 100 Oxygen Delivery Room Air 11/30/23 06:00 Temperature 98.8 F Pulse Rate 76 Respiratory Rate 24 H Blood Pressure 118/90 Pulse Oximetry 94 Oxygen Delivery Intake/Output Intake/Output: Intake & Output 11/27/23 11/28/23 11/29/23 11/30/23 23:59 23:59 23:59 23:59 Intake Total 1670 1220 1200 1100 Output Total 750 1350 1800 1400 Balance 920 -130 -600 -300 Meds/Results Medications: Active Medications Generic Name Dose Route Start Last Admin Trade Name Jade PRN Reason Stop Dose Admin Acetaminophen 650 mg 11/23/23 08:29 11/23/23 21:32 Acetaminophen 325 Mg Tablet PO 650 mg Q4H PRN Administration Mild Pain (1-3) or Fever Acetaminophen 1,000 mg 11/24/23 16:00 11/30/23 08:50 Acetaminophen 500 Mg Tablet PO 1,000 mg Q8H JYOTHI Administration Diphenhydramine HCl 25 mg 11/28/23 10:34 Diphenhydramine Hcl Inj 50 Mg/Ml Vial IV PUSH Q4H PRN Itching Sodium Chloride 1,000 mls @ 75 mls/hr 11/24/23 15:40 11/30/23 02:50 Normal Saline Iv IV CONT 75 mls/hr .[id number] JYOTHI Administration Cefepime HCl 0.5 gm/ Dextrose 50 mls @ 100 mls/hr
[2023-11-30] MEDS: SODIUM BICARBONATE TAB 650 MG TABLET PO ×2 (12:06→16:25)
--- NOTE | 2023-11-30 12:39 | PM.PNNEP ---
Progress Note: A&P Assessment and Plan (1) Acute kidney injury: Code(s): N17.9 - Acute kidney failure, unspecified Status: Acute Assessment and Plan: creatinine on admission was normal decline in renal function started/noted on 11/26 by AM labs possible etiologies: possible UTI/pyelonephritis NSAID use contrast exposure (CT scan on 11/23) antibiotics (was on vancomycin + Zosyn - this combination has been associated with renal insufficiency) evaluation to date: renal ultrasound with medical renal disease CPK normal urine electrolytes non-prenal UA suggestive of infection (but urine culture negative) urine eosinophils negative serologies noted -- positive ERNST and dsDNA-ab; complements normal possible peak/plateau of creatinine -- rate of rise in creatinine seems to be slowing... follow repeat labs and UOP (2) Pyelonephritis: Code(s): N12 - Tubulo-interstitial nephritis, not specified as acute or chronic Status: Acute Assessment and Plan: admission UA and CT scan suggestive on antibiotics follow culture data (although urine culture collected after abx initiated) (3) Anemia: Code(s): D64.9 - Anemia, unspecified Status: Acute Assessment and Plan: H/H low but stable suspect secondary to NAYELY and acute illness follow trend consider Epogen if declines further Will continue to follow. Subjective Date/time seen: 11/30/23 12:39 Interval history: Follow-up for acute kidney injury/acute renal failure. Renal function/creatinine about the same as yesterday; continues to make good urine output; oral intake better but still with nausea/vomiting although IV antiemetics help; noted generalized weakness as well. Exam Narrative: General: WD/WN female in NAD Heart: normal S1 and S2; no rub Lungs: clear to auscultation Abdomen: soft, nontender, nondistended, positive bowel sounds Extremities: no cyanosis or clubbing; no edema Skin: no rash Objective Data Vital Signs Vital Signs: Vital Signs Temp Pulse Resp BP Pulse Ox O2 Del Method 11/30/23 12:00 97.7 F 67 18 142/80 H 100 11/30/23 08:50 Room Air 11/30/23 06:00 98.8 F 76 24 H 118/90 94 11/29/23 22:00 98.1 F 73 18 129/86 100 Intake/Output Intake/Output: Intake & Output 11/27/23 11/28/23 11/29/23 11/30/23 23:59 23:59 23:59 23:59 Intake Total 1670 1220 1250 2220 Output Total 750 1350 1800 2000 Balance 920 -130 -550 220 Meds/Results Medications: Active Medications Generic Name Dose Route Start Last Admin Trade Name Freq PRN Reason Stop Dose Admin Acetaminophen 650 mg 11/23/23 08:29 11/23/23 21:32 Acetaminophen 325 Mg Tablet PO 650 mg Q4H PRN Administration Mild Pain (1-3) or Fever Acetaminophen 1,000 mg 11/24/23 16:00 11/30/23 16:25 Acetaminophen 500 Mg Tablet PO 1,000 mg Q8H JYOTHI Administration Diphenhydramine HCl 25 mg 11/28/23 10:34 Diphenhydramine Hcl Inj 50 Mg/Ml Vial IV PUSH Q4H PRN Itching Sodium Chloride 1,000 mls @ 75 mls/hr 11/24/23 15:40 11/30/23 16:25 Normal Saline Iv IV CONT 75 mls/hr .[id number] JYOTHI Administration Cefepime HCl 0.5 gm/ Dextrose 50 mls @ 100 mls/hr 11/27/23 17:00 11/30/23 16:28 IVPB 100 mls/hr Q24H JYOTHI Administration Lorazepam 0.5 mg 11/28/23 18:30 Lorazepam Inj (*Crx) 2 Mg/Ml Vial IV PUSH Q6H PRN Anxiety Morphine Sulfate 4 mg 11/23/23 08:29 11/30/23 13:44 Morphine Sulfate (*Crx) 4 Mg/Ml Inj IV PUSH 4 mg Q2H PRN Administration Pain Rated 7-10 Pantoprazole Sodium 40 mg 11/28/23 14:05 11/30/23 08:50 Pantoprazole Sodium Iv 40 Mg Vial IV PUSH 40 mg QAM JYOTHI Administration Promethazine HCl 12.5 mg 11/28/23 09:17 11/29/23 15:36 Promethazine Hcl 25 Mg/Ml Ampul IV PUSH 12.5 mg Q4H PRN Administration Nausea And Vomiting Sodium Bicarbonate 650 mg 11/30/23 10:10 01
--- NOTE | 2023-11-30 12:39 | P.PNNP_ITS ---
Progress Note: A&P Assessment and Plan (1) Acute kidney injury: Code(s): N17.9 - Acute kidney failure, unspecified Status: Acute Assessment and Plan: * creatinine on admission was normal * decline in renal function started/noted on 11/26 by AM labs * possible etiologies: * possible UTI/pyelonephritis * NSAID use * contrast exposure (CT scan on 11/23) * antibiotics (was on vancomycin + Zosyn - this combination has been associated with renal insufficiency) * evaluation to date: * renal ultrasound with medical renal disease * CPK normal * urine electrolytes non-prenal * UA suggestive of infection (but urine culture negative) * urine eosinophils negative * serologies noted -- positive ERNST and dsDNA-ab; complements normal * possible peak/plateau of creatinine -- rate of rise in creatinine seems to be slowing... * follow repeat labs and UOP (2) Pyelonephritis: Code(s): N12 - Tubulo-interstitial nephritis, not specified as acute or chronic Status: Acute Assessment and Plan: * admission UA and CT scan suggestive * on antibiotics * follow culture data (although urine culture collected after abx initiated) (3) Anemia: Code(s): D64.9 - Anemia, unspecified Status: Acute Assessment and Plan: * H/H low but stable * suspect secondary to NAYELY and acute illness * follow trend * consider Epogen if declines further Will continue to follow. Subjective Date/time seen: 11/30/23 12:39 Interval history: Follow-up for acute kidney injury/acute renal failure. Renal function/creatinine about the same as yesterday; continues to make good urine output; oral intake better but still with nausea/vomiting although IV antiemetics help; noted generalized weakness as well. Exam Narrative: General: WD/WN female in NAD Heart: normal S1 and S2; no rub Lungs: clear to auscultation Abdomen: soft, nontender, nondistended, positive bowel sounds Extremities: no cyanosis or clubbing; no edema Skin: no rash Objective Data Vital Signs Vital Signs: Vital Signs Temp Pulse Resp BP Pulse Ox O2 Del Method 11/30/23 12:00 97.7 F 67 18 142/80 H 100 11/30/23 08:50 Room Air 11/30/23 06:00 98.8 F 76 24 H 118/90 94 01/16/24 22:00 98.1 F 73 18 129/86 100 Intake/Output Intake/Output: Intake & Output 11/27/23 11/28/23 11/29/23 11/30/23 23:59 23:59 23:59 23:59 Intake Total 1670 1220 1250 2220 Output Total 750 1350 1800 2000 Balance 920 130 -550 220 Meds/Results Medications: Active Medications Generic Name Dose Route Start Last Admin Trade Name Freq PRN Reason Stop Dose Admin Acetaminophen 650 mg 11/23/23 08:29 11/23/23 21:32 Acetaminophen 325 Mg Tablet PO 650 mg Q4H PRN Administration Mild Pain (1-3) or Fever Acetaminophen 1,000 mg 11/24/23 16:00 11/30/23 16:25 Acetaminophen 500 Mg Tablet PO 1,000 mg Q8H JYOTHI Administration Diphenhydramine HCl 25 mg 11/28/23 10:34 Diphenhydramine Hcl Inj 50 Mg/Ml Vial IV PUSH Q4H PRN Itching Sodium Chloride 1,000 mls @ 75 mls/hr 11/24/23 15:40 11/30/23 1
[2023-11-30 12:57] VITALS: BMI 40.2
[2023-11-30 14:00] VITALS: BP 142/80; PULSE 67; RESP 18; TEMP 36.5; O2SAT 100
[2023-11-30] MEDS: CEFEPIME 0.5 GM in DEXTROSE 5% IN WATER 50 ML IVPB (16:28)
[2023-11-30 19:03] LABS: Complement Total CH50 >60 U/mL (31-60)
[2023-11-30 19:33] LABS: Anti Glomerular Basement Memb <1.0 AI (<1.0)
--- NOTE | 2023-11-30 19:59 | PC.NURSE ---
This RN was told at shift report that pt was requesting to leave AMA. Day RN educated patient, talked to hospitalist, and warned patient of risks with leaving. The hospitalist was aware of situation and patient stated she understood the risks. This RN educated pt on concerns, risks, and her condition. Pt stated she understood the risks, and was still wanting to leave. Pt brother arrived at bedside, and risks were discussed with him as well. Pt's IV was removed, and AMA paper was signed. Patient transported to car via wheelchair.
[2023-11-30 22:00] LABS: ANCA Screen Negative (Negative)
--- NOTE | 2023-12-03 06:38 | PM.DS ---
DS: Admitting Diagnosis Discharge Date 11/30/23 Admitting Diagnosis Fever and flank pain DS: Discharge Diagnosis Discharge Diagnosis (1) Pyelonephritis: Code(s): N12 - Tubulo-interstitial nephritis, not specified as acute or chronic Status: Acute (2) Acute kidney injury: Code(s): N17.9 - Acute kidney failure, unspecified Status: Acute (3) Anemia: Code(s): D64.9 - Anemia, unspecified Status: Acute DS: Summary Hospital Course Reason for hospitalization: 28-year-old female with no past medical history is presenting with fevers and flank pain and being treated for pyelonephritis with associated sepsis and now NAYELY. Please see H&P for details. Hospital Course: Patient presents with fevers and flank pain. CXR was clear. CT A/P showing suspected bilateral pyelonephritis and cystitis. Started on Rocephin but abx adjusted ultimately to cefepime + linezolid. BCx 11/24 negative.? BCx 11/27 NGTD. UCx 11/24 and 11/27 negative. MRSA nasal swab 11/25 negative.?WBC was 16K and has trended down to 10.7K. Linezolid stopped 11/29. Cultures were negative but collected after starting abx. Patient also developed acute kidney injury. Cr normal on admission. Nephrology consulted and appreciate their input. Etiology likely multifactorial due to pyelonephritis, vanc + zosyn combination, vanc trough too high, and CT with contrast. Also consider autoimmune process. DS DNA positive. Complement normal. Ueos negative. TCK normal.?Cr 5.7 and about the same as yesterday so may be leveling off. She had UOP 1800+ yesterday. Renal US showing medical renal disease. We added oral bicarb for metabolic acidosis. Patient with acute on chronic anemia. Hgb 11 at baseline. Hgb dropped to 8-9 range and stable now. Later in the evening of 11/30/23, patient stated that her brother was going to come get her and that she was going to sign out against medical advise. Her brother was going to take her to another hospital closer to where the family lives. It was explained to her that the risk of doing so included worsening renal function, complete kidney failure and even . She signed out against medical advise on 11/30/23. Status at Discharge Cognitive/behavioral status at discharge: stable Time Spent with Patient Time attestation: Total time spent providing and/or coordinating discharge services: 32 minutes Time spent: Greater than 30 minutes Exam Narrative: AF 98.8 118/90 76 24 94% ra Gen - NARD Chest - CTA bilaterally, nml RR CV - RRR S1/S2 Abd - Soft, NT/ND, Positive BS Back - no CVA tenderness but with paraspinal tenderness mid-thoracic area. Ext - No pedal edema Psych - Nml mood and affect Skin - Warm and dry Discharge Plan Discharge Consulting providers: Josh Samson; Tomy Shi; Maribell Duran; Jai Crawford Patient Disposition: Left Against Medical Advice Patient Instructions: Depression (DC), Suicide Prevention (DC) Discharge Medications: No Action sertraline 100 mg tablet 100 mg PO DAILY Date of admission: 11/23/23 08:29 Primary Care Provider: Ariadne Ortiz Admitting Provider: Ernestine Siegel Attending physician on admission: Gustavo Graham Condition: Stable
[2023-12-05 06:59] LABS: Albumin 36 %; Creat 24 Hr 0.75 g/24 h (0.50-2.15); Pro/Creat Ratio 631 mg/g creat (<150); Pro/Creat Ratio mg/mg 0.631 (<0.150); Protein,total, 24 Hr Ur 475 mg/24 h (<150)
== END 2023-11-30 20:10 | disposition left against medical advice (07) | DRG 720 ==
LOC: ANHED 08:35 → ANH3MEDSUR 09:18
PROVIDERS: Emergency Medicine; Internal Medicine Nephrology; Admitting Provider Student in an Organized Health Care Education/Training Program; Emergency Provider Family Medicine; PCP Obstetrics & Gynecology; Visit Provider Internal Medicine
DX: A41.9 Sepsis, unspecified organism (principal); N10 Acute pyelonephritis; F41.8 Other specified anxiety disorders; N30.90 Cystitis, unspecified without hematuria; N17.9 Acute kidney failure, unspecified; D64.9 Anemia, unspecified
CPT/HCPCS: 36415; 71045; 74176; 74177; 76775; 80048; 80053; 80202; 81001; 81025; 82550; 82570; 83520; 83605; 83690; 83883; 84100; 84145; 84156; 84300; 85025; 85652; 85999; 86036; 86038; 86039; 86140; 86160; 86162; 86225; 86334; 86335; 87040; 87086; 87637; 87641; 96361; 96365; 96375; 96376; 99285; A9270; C9113; J0692; J0696; J1741; J1885; J2020; J2060; J2270; J2405; J2543; J2550; J2765; J3370; J3480; J7030; J7040; Q9967